=== PATIENT | male | born 1950 | race Caucasian/White ===

== ENCOUNTER 2016-06-27 13:51 | Inpatient (IN) | payer MEDICARE, MEDICAID ==
[2016-06-27] MEDS ORDERED: NORMAL SALINE 1000 ML 1,000 ML IV PRN ×2 (14:40→15:56)
--- NOTE | 2016-06-27 14:46 | ER Document Report ---
ED General - General Stated Complaint: ABDOMINAL PAIN Time seen by provider: 14:41 Mode of Arrival: Ambulatory Information source: Patient Notes: This is a 66-year-old man with a history of schizophrenia, diabetes, hypertension, coronary artery disease, COPD, hypertension that was last admitted in pneumonia for bilateral pneumonia. The patient is brought in because of abdomen pain, headache, nausea vomiting. Patient currently lives at home and has home health care. He also has a friend come over. He normally can walk around and in maneuver around his home and get to the bathroom. When EMS arrived on the scene, they noticed a blood pressure of 70/56 with a heart rate between 50 and 70. TRAVEL OUTSIDE OF THE [place] IN LAST 30 DAYS: No - HPI Onset: Just prior to arrival Onset/Duration: Gradual Quality of pain: Dull Severity: Moderate Pain Level: 4 Associated symptoms: Headache, Nausea. denies: Chills, Fever Exacerbated by: Denies Relieved by: Denies Similar symptoms previously: No Recently seen / treated by doctor: Yes - Related Data Allergies/Adverse Reactions: Penicillins Allergy (Verified 04/16/16 17:15) Sulfa (Sulfonamide Antibiotics) Allergy (Verified 04/16/16 17:15) Past Medical History - General Information source: Patient - Social History Smoking Status: Unknown if Ever Smoked Cigarette use (# per day): No Chew tobacco use (# tins/day): No Smoking Education Provided: No Frequency of alcohol use: None Drug Abuse: None Lives with: Other Family History: Reviewed & Not Pertinent Patient has suicidal ideation: No Patient has homicidal ideation: No - Past Medical History Cardiac Medical History: Reports: Hx Congestive Heart Failure, Hx Heart Attack, Hx Hypercholesterolemia, Hx Hypertension Pulmonary Medical History: Reports: Hx COPD Neurological Medical History: Endocrine Medical History: Reports: Hx Diabetes Mellitus Type 2 Renal/ Medical History: GI Medical History: Reports: Hx Gastroesophageal Reflux Disease Musculoskeltal Medical History: Reports Hx Arthritis, Reports Hx Multiple Sclerosis Psychiatric Medical History: Reports: Hx Depression, Hx Schizophrenia Past Surgical History: Reports: Hx Abdominal Surgery - HERNIA, Hx Cardiac Catheterization, Hx Cardiac Surgery - CABG (5 way); stents x 2 - Immunizations Hx Diphtheria, Pertussis, Tetanus Vaccination: Yes - UTD Review of Systems - Review of Systems Constitutional: denies: Chills, Fever EENT: No symptoms reported Cardiovascular: See HPI Respiratory: No symptoms reported Gastrointestinal: See HPI Genitourinary: No symptoms reported Male Genitourinary: No symptoms reported Musculoskeletal: No symptoms reported Skin: No symptoms reported Hematologic/Lymphatic: No symptoms reported Neurological/Psychological: See HPI, Weakness Physical Exam - Vital signs Vitals: Resp BP Pulse Ox 23 H 77/53 L 97 06/27/16 14:10 06/27/16 14:10 06/27/16 14:10 Notes: Physical exam: GENERAL: 66-year-old man, alert and answering questions. His eyes are closed and he does have a pale complexion. HEAD: Atraumatic, normocephalic. EYES: Pupils equal round and reactive to light, extraocular movements intact, sclera anicteric, conjunctiva are normal. ENT: TMs normal, nares patent, oropharynx clear without exudates. Moist mucous membranes. NECK: Normal range of motion, supple without lymphadenopathy or JVD. LUNGS: Breath sounds clear to auscultation bilaterally and equal. No wheezes rales or rhonchi. HEART: Regular rate and rhythm without murmurs, rubs or gallops. ABDOMEN: Soft, non-localizable tenderness without rebound and guarding, normoactive bowel sounds. No masses appreciated. Groin: Patient does have extensive eliseo in the groin. He does have a reducible scrotal hernia that is not tender to palpation. Penis and testicles: Left scrotal hernia noted above. The testicles are nontender. No obvious infection of the shaft. The whole perineum is excoriated from a superimposed yeast infection. Rectal: Patient does have a large amount of stool in his oral. He was disimpacted. Stool was sent for study. He does have grade 1 sacral breakdown. EXTREMITIES: Moving all extremities, no obvious edema. NEUROLOGICAL: Cranial nerves II through XII grossly intact. Normal speech, moving all extremities. PSYCH: Appears weak SKIN: As noted above Course - Re-evaluation Re-evalutation: 06/27/16 14:45 In the ER: IV fluids, manual fecal disimpaction, head CT Abdominal CT 06/27/16 18:29 Note: Patient has had 2-1/2 L of normal saline and his blood pressure has improved. A Pratt catheter was placed and he is making urine at this time. He seems more responsive at this time and does state his got some abdominal discomfort. His headache seems to improved. The patient has been given IV cefepime and IV levofloxacin. Blood and urine cultures have been sent. We'll continue to hydrate. 06/27/16 18:[address] Balbuena of surgery who will consult on the patient. I discussed case with Dr. Duarte who will be admitting the patient to the [facility]. 06/27/16 18:46 Note: Patient is noted to have some blood in the stool. Initial stool sample showed no blood. It is possible that this could be the result of the disimpaction earlier, it is unclear. In any event, patient will still be evaluated by surgery and will continue fluid resuscitation and antibiotics. Patient was seen by Dr. Balbuena in the emergency room. I discussed case with him further. The patient's abdominal exam reveals soft abdomen without peritoneal findings. However the lactic acid is quite concerning. We will continue to give IV fluids and IV antibiotics. The patient is admitted to the [facility]. 06/28/16 01:38 - Vital Signs Vital signs: Temp Pulse Resp BP Pulse Ox 96.7 F L 22 H 105/87 H 94 06/27/16 14:51 06/27/16 23:30 06/27/16 23:21 06/27/16 23:30 - Laboratory Result Diagrams: 06/27/16 21:50 06/27/16 21:50 Laboratory results interpreted by me: 06/27/16 06/27/16 06/27/16 15:10 15:10 17:55 WBC 17.1 H Plt Count 148 L Seg Neutrophils % 86.5 H Lymphocytes % 7.9 L Absolute Neutrophils 14.8 H Sodium 130.0 L Potassium 3.3 L Chloride 90 L Glucose 138 H Lactic Acid 7.1 H - Diagnostic Test Radiology reviewed: Image reviewed, Reports reviewed - EKG Interpretation by Me Rate: Normal Rhythm: Arrthymia - EKG shows a sinus arrhythmia with a ventricular rate of 68, right bundle branch block, old inferior wall GA. No significant change compared to an EKG performed 04/16/2016 Critical Care Note - Critical Care Note Total time excluding time spent on procedures (mins): 90 Discharge - Discharge Clinical Impression: abdominal pain, hypotension, hypokalemia Condition: Serious Disposition: ADMITTED INPATIENT Admitting Provider: Gerald
[2016-06-27 15:35] LABS: ABSOLUTE BASOPHILS # (AUTO) 0.1 10^3/uL (0.0-0.2); ABSOLUTE EOSINOPHILS # (AUTO) 0.1 10^3/uL (0.0-0.6); ABSOLUTE LYMPHOCYTES (AUTO) 1.3 10^3/uL (0.5-4.7); ABSOLUTE MONOCYTES (AUTO) 0.8 10^3/uL (0.1-1.4); ABSOLUTE NEUT (AUTO) 14.8 10^3/uL (1.7-8.2); BASOPHILS % (AUTO) 0.7 % (0-2); EOSINOPHILS % (AUTO) 0.4 % (0-6); HEMATOCRIT 44.9 % (37.9-51.0); HEMOGLOBIN 14.8 g/dL (13.5-17.0); HGB HCT DIFFERENCE -0.5; LYMPHOCYTES % (AUTO) 7.9 % (13-45); MEAN CORPUSCULAR HEMOGLOBIN 31.4 pg (27.0-33.4); MEAN CORPUSCULAR HGB CONC 33.1 g/dL (32.0-36.0); MEAN CORPUSCULAR VOLUME 95 fl (80-97); MONOCYTES % (AUTO) 4.5 % (3-13); RED BLOOD COUNT 4.73 10^6/uL (4.35-5.55); RED CELL DISTRIBUTION WIDTH 13.7 % (11.5-14.0); SEGMENTED NEUTROPHILS % (AUTO) 86.5 % (42-78); WHITE BLOOD COUNT 17.1 10^3/uL (4.0-10.5)
[2016-06-27 15:47] LABS: ALANINE AMINOTRANSFERASE 26 U/L (21-72); ALBUMIN 3.7 g/dL (3.5-5.0); ALKALINE PHOSPHATASE 62 U/L (38-126); ANION GAP 16 (5-19); ASPARTATE AMINO TRANSFERASE 25 U/L (17-59); BILIRUBIN,TOTAL 0.9 mg/dL (0.2-1.3); BLOOD UREA NITROGEN 19 mg/dL (7-20); CALCIUM 9.6 mg/dL (8.4-10.2); CARBON DIOXIDE 24 mmol/L (22-30); CHLORIDE 90 mmol/L (98-107); CREATINE KINASE 61 U/L (55-170); CREATININE RESULT 1.13 mg/dL (0.52-1.25); GLUCOSE 138 mg/dL (75-110); LIPASE 116.9 U/L (23-300); POTASSIUM 3.3 mmol/L (3.6-5.0); TOTAL PROTEIN 6.5 g/dL (6.3-8.2)
[2016-06-27 15:59] LABS: CREATINE KINASE MB 1.87 ng/mL (<4.55)
[2016-06-27 16:00] LABS: TROPONIN I < 0.012 ng/mL
[2016-06-27] MEDS ORDERED: LEVOFLOXACIN 750 MG/D5W RTU 150 ML IV ONE (16:04)
[2016-06-27] MEDS ORDERED: CEFEPIME 1 GM/D5W RTU 50 ML IV ONE (16:04)
[2016-06-27 16:11] LABS: APPEARANCE,URINE CLEAR; BILIRUBIN,URINE NEGATIVE (NEGATIVE); GLUCOSE, URINE NEGATIVE (NEGATIVE); KETONES,URINE NEGATIVE (NEGATIVE); LEUKOCYTE ESTERASE,URINE NEGATIVE (NEGATIVE); NITRITE,URINE NEGATIVE (NEGATIVE); PROTEIN,URINE NEGATIVE (NEGATIVE); URINE SPECIFIC GRAVITY 1.008; UROBILINOGEN,URINE NEGATIVE mg/dL (<2.0)
--- NOTE | 2016-06-27 18:29 | EKG REPORT ---
SEVERITY:- ABNORMAL ECG - SINUS RHYTHM ATRIAL PREMATURE COMPLEX RBBB AND LPFB OLD INFERIOR VA : Confirmed by: Noe Rodrigez MD 27-Jun-2016 18:28:16
[2016-06-27] MEDS ORDERED: POTASSI CL 20 MEQ/50 ML RIDER 50 ML IV SCH (18:45)
[2016-06-27] MEDS ORDERED: NORMAL SALINE 1000 ML 1,000 ML IV ONE (20:00)
[2016-06-27] MEDS ORDERED: VANCOMYCIN HCL 750 MG in DEXTROSE 5%-WATER 250 ML IV ONE (20:30)
[2016-06-27 22:01] LABS: HEMATOCRIT 46.6 % (37.9-51.0); HEMOGLOBIN 15.4 g/dL (13.5-17.0); HGB HCT DIFFERENCE -0.4; MEAN CORPUSCULAR HEMOGLOBIN 31.8 pg (27.0-33.4); MEAN CORPUSCULAR HGB CONC 33.1 g/dL (32.0-36.0); MEAN CORPUSCULAR VOLUME 96 fl (80-97); RED BLOOD COUNT 4.85 10^6/uL (4.35-5.55); RED CELL DISTRIBUTION WIDTH 13.9 % (11.5-14.0); WHITE BLOOD COUNT 8.8 10^3/uL (4.0-10.5)
[2016-06-27 22:08] LABS: PROTHROMBIN TIME 22.9 SEC (11.4-15.4)
[2016-06-27 22:09] LABS: PARTIAL THROMBOPLASTIN TIME 41.1 SEC (23.5-35.8)
--- NOTE | 2016-06-27 22:12 | PDOC H&P ---
History of Present Illness Admission Date/PCP: 06/27/16 19:18 MARYANN ASHLEY Patient complains of: Abdominal pain History of Present Illness: VIRY ROD is a 66 year old male brought to the ED because of for complaints of abdomen pain, nausea and vomiting. Patient caregiver reported that he was not his usual self for couple of days but became more sicker less engaging his his self care. In view of these his caregiver activate EMS. EMS personnel reported significant hypotension with recorded readings of 70/50mmHg with associated bradycardia and heart rate in range of 50 to 70 per minute. His initial ED evaluation was significant for hypotension, tachypnea, leukocytosis with left shift and lactic acidosis. Patient was initially managed with IV fluid resuscitation and antibiotic therapy after appropriate workup. At the time of my he was verbally responsive but hypotension persist. Patient was able to contribute to his medical history at the time of my evaluation. He has history of hypertension, CAD, DM type 2, COPD, and Schizophrenia. Patient was advised hospitalization to ICU due to his hemodynamic instability. Past Medical History Cardiac Medical History: Reports: Congestive Heart Failure, Coronary Artery Disease, Myocardial Infarction, Hyperlipidema, Hypertension Pulmonary Medical History: Reports: Chronic Obstructive Pulmonary Disease (COPD) Neurological Medical History: Endocrine Medical History: Reports: Diabetes Mellitus Type 2 Renal/ Medical History: GI Medical History: Reports: Gastroesophageal Reflux Disease Musculoskeltal Medical History: Reports: Arthritis Psychiatric Medical History: Reports: Depression Hematology: Denies: Anemia, Bleeding Tendencies Past Surgical History Past Surgical History: Reports: Cardiac Catheterization Social History Smoking Status: Current Every Day Smoker Frequency of Alcohol Use: Occasional Hx Recreational Drug Use: No Drugs: None Hx Prescription Drug Abuse: No Family History Family History: Reviewed & Not Pertinent Parental Family History Reviewed: Yes Children Family History Reviewed: Yes Sibling(s) Family History Reviewed.: Yes Medication/Allergy Home Medications: Benztropine Mesylate [Benztropine Mesylate 2 mg Tablet] 2 mg PO QHS 02/10/15 Duloxetine HCl [Cymbalta] 60 mg PO BID 08/10/15 Paliperidone Palmitate [Invega Trinza] 156 mg IM [id number] 08/10/15 Acetaminophen [Tylenol 325 mg Tablet] 650 mg PO Q4HP PRN #60 tablet 08/15/15 Allopurinol [Zyloprim 100 mg Tablet] 100 mg PO DAILY #30 tablet 08/15/15 Amlodipine Besylate 10 mg PO DAILY #30 tab 08/15/15 Clonidine HCl [Catapres 0.2 mg Tablet] 0.2 mg PO Q12 #60 tablet 08/15/15 Ezetimibe/Simvastatin [Vytorin 10-20 mg Tablet] 1 each PO DAILY #30 tablet 08/14 Furosemide [Lasix 40 mg Tablet] 40 mg PO QAM #30 tablet 08/15/15 Hydralazine HCl [Apresoline 50 mg Tablet] 100 mg PO Q8 #180 tablet 08/15/15 Metformin HCl [Glucophage 500 mg Tablet] 1,000 mg PO BID #60 tablet 08/15/15 Nicotine [Nicoderm 21 mg/24 Hr Transderm Patch] 1 each TD DAILY #30 patch.td24 08/15/15 Lisinopril 20 mg PO DAILY 04/16/16 Hydrocortisone [Hydrocortisone 1% Cream 28.35 gm] 1 applic TP DAILY #0 tube Magnesium Oxide [Mag-Ox 400 mg Tablet] 400 mg PO DAILY #0 tablet 04/27/16 Trazodone HCl [Desyrel 50 mg Tablet] 25 mg PO QHS #0 tablet 04/27/16 Allergies/Adverse Reactions: Penicillins Allergy (Verified 04/16/16 17:15) Sulfa (Sulfonamide Antibiotics) Allergy (Verified 04/16/16 17:15) Review of Systems Constitutional: PRESENT: anorexia, fatigue, weakness. ABSENT: as per HPI, chills, fever(s), headache(s), night sweats, weight gain, weight loss, other Eyes: PRESENT: visual disturbances Ears: PRESENT: hearing changes Nose, Mouth, and Throat: ABSENT: as per HPI, headache(s), mouth pain, sore throat, vertigo, other Cardiovascular: ABSENT: chest pain, dyspnea on exertion, edema, orthropnea, palpitations Respiratory: ABSENT: cough, hemoptysis Gastrointestinal: PRESENT: abdominal pain, nausea, vomiting. ABSENT: as per HPI , bloating, coffee ground emesis, constipation, diarrhea, dysphagia, heartburn, hematemesis, hematochezia, melena, other Genitourinary: ABSENT: as per HPI, difficulty urinating, dysuria, hematuria, nocturia, other Musculoskeletal: PRESENT: joint swelling - chronic left leg Neurological: PRESENT: abnormal gait, confusion - as per caregiver report, lack of coordination, memory loss, weakness. ABSENT: as per HPI, abnormal movements , abnormal speech, convulsions, dizziness, focal weakness, frequent falls, numbness, paresthesias, restless legs, syncope, tingling, tremor(s), vertigo, other Psychiatric: ABSENT: anxiety, depression, homidical ideation, suicidal ideation Endocrine: ABSENT: cold intolerance, heat intolerance, menstrual abnormalities, polydipsia, polyuria Hematologic/Lymphatic: ABSENT: easy bleeding, easy bruising, lymphadenopathy Physical Exam Vital Signs: Temp Pulse Resp BP Pulse Ox 96.7 F L 26 H 100/82 99 06/27/16 14:51 06/27/16 21:01 06/27/16 20:31 06/27/16 21:01 Results Laboratory Results: see [facility] [employer] for details. I reviewed available test results and they contribute to my final decision making on this case. 06/27/16 19:20 Troponin I 0.023 Impressions: Chest X-Ray 06/27/16 14:21 IMPRESSION: No acute findings. Head CT 06/27/16 14:40 IMPRESSION: MILD CHRONIC CHANGES OF ATROPHY AND MICROVASCULAR ISCHEMIA. NO ACUTE PROCESS. Abdomen/Pelvis CT 06/27/16 15:53 IMPRESSION: 9 cm left inguinal hernia which contains a segment of sigmoid colon. There is mild stranding in the retroperitoneal fat, no definite evidence of incarceration. There is moderate impaction of stool in the rectosigmoid colon. The the remainder of the colon proximal to the hernia sac is largely fluid filled. No dilated small bowel. Fluid-filled esophagus, correlate for history of achalasia. Assessment & Plan - Diagnosis (1) SIRS due to infectious process with organ dysfunction Is this a current diagnosis for this admission?: YesPlan: See admitting physician orders for details. (2) Hyponatremia Is this a current diagnosis for this admission?: YesPlan: See admitting physician orders for details. (3) Weakness generalized Is this a current diagnosis for this admission?: YesPlan: See admitting physician orders for details. (4) Schizophrenia Is this a current diagnosis for this admission?: YesPlan: Maintain on preadmission medication management. - Time Time Spent: Greater than 70 Minutes Medications reviewed and adjusted accordingly: Yes Anticipated discharge: Other Within: Other - Inpatient Certification Medical Necessity: Need Close Monitoring Due to Risk of Patient Decompensation, Need For IV Fluids, Need For Continuous Telemetry Monitoring, Need for IV Antibiotics, Risk of Complication if Not Cared For in Hospital Post Hospital Care: D/C [employer] Documentation - Plan Summary Plan Summary: See admitting physician orders for details.
[2016-06-27 22:19] LABS: CREATININE RESULT 1.16 mg/dL (0.52-1.25)
[2016-06-27] MEDS: DOPAMINE HCL/DEXTROSE 5%-WATER 250 ML IV PRN (22:25)
[2016-06-28] MEDS ORDERED: RINGERS SOLUTION,LACTATED 1,000 ML IV ONE ×2 (01:48→01:49)
[2016-06-28] MEDS ORDERED: VANCOMYCIN HCL INJ 1000 MG VIAL ONE (02:06)
[2016-06-28] MEDS: NORMAL SALINE 1000 ML 1,000 ML IV PRN ×5 (02:35→14:25)
[2016-06-28] MEDS ORDERED: NOREPINEPHRINE BITARTRATE INJ/PF 4 MG/4 ML SDV IV ONE (04:10)
[2016-06-28 04:36] LABS: ARTERIAL BLOOD BASE EXCESS -15.6 mmol/L; ARTERIAL BLOOD O2 SATURATION 89.1 % (94-98)
[2016-06-28] MEDS ORDERED: POTASSI CL 20 MEQ/50 ML RIDER 40 MEQ/100 ML RTUPB IV ONE (05:14)
[2016-06-28] MEDS ORDERED: LANSOPRAZOLE 30 MG TAB.RAP.DR PO SCH (06:00)
[2016-06-28] MEDS: DOPAMINE HCL/DEXTROSE 5%-WATER 250 ML IV PRN ×2 (06:19→20:05)
[2016-06-28 07:00] LABS: HEMATOCRIT 44.1 % (37.9-51.0); HEMOGLOBIN 14.2 g/dL (13.5-17.0); HGB HCT DIFFERENCE -1.5; MEAN CORPUSCULAR HEMOGLOBIN 31.3 pg (27.0-33.4); MEAN CORPUSCULAR HGB CONC 32.1 g/dL (32.0-36.0); MEAN CORPUSCULAR VOLUME 98 fl (80-97); RED BLOOD COUNT 4.52 10^6/uL (4.35-5.55); WHITE BLOOD COUNT 8.2 10^3/uL (4.0-10.5)
[2016-06-28] MEDS ORDERED: NORMAL SALINE 1000 ML 1,000 ML IV ONE ×2 (07:00→09:00)
[2016-06-28 07:39] LABS: ALANINE AMINOTRANSFERASE 35 U/L (21-72); ALBUMIN 3.1 g/dL (3.5-5.0); ALKALINE PHOSPHATASE 53 U/L (38-126); ASPARTATE AMINO TRANSFERASE 54 U/L (17-59); BILIRUBIN,DIRECT 0.2 mg/dL (0.0-0.3); BILIRUBIN,TOTAL 1.3 mg/dL (0.2-1.3); BLOOD UREA NITROGEN 28 mg/dL (7-20); CALCIUM 9.1 mg/dL (8.4-10.2); CREATININE RESULT 1.43 mg/dL (0.52-1.25); GLUCOSE 77 mg/dL (75-110); TOTAL PROTEIN 5.3 g/dL (6.3-8.2)
[2016-06-28 07:49] LABS: CHLORIDE 99 mmol/L (98-107); SODIUM 134.2 mmol/L (137-145)
[2016-06-28 07:53] LABS: ANION GAP 23 (5-19); CARBON DIOXIDE 12 mmol/L (22-30); POTASSIUM 4.6 mmol/L (3.6-5.0)
[2016-06-28 08:09] LABS: BAND NEUTROPHILS % (MANUAL) 27 % (3-5); BASOPHILS % (MANUAL) 0 % (0-2); EOSINOPHILS % (MANUAL) 0 % (0-6); LYMPHOCYTES % (MANUAL) 4 % (13-45); TOTAL CELLS COUNTED 100
[2016-06-28 08:11] LABS: TOXIC VACUOLATION PRESENT
[2016-06-28 08:12] LABS: POLYCHROMASIA SLIGHT
[2016-06-28] MEDS ORDERED: VANCOMYCIN HCL 0 MG in DEXTROSE 5%-WATER 250 ML IV NR (08:30)
[2016-06-28] MEDS ORDERED: ROCURONIUM BROMIDE INJ 50 MG/5 ML VIAL IV ONE (08:57)
[2016-06-28] MEDS: LEVOFLOXACIN 750 MG/D5W RTU 150 ML IV SCH (09:12)
[2016-06-28] MEDS: CEFEPIME 1 GM/D5W RTU 50 ML IV SCH ×2 (09:13→22:24)
[2016-06-28] MEDS: DEXTROSE 5%-WATER 250 ML with NOREPINEPHRINE BITARTRATE 4 MG IV PRN ×6 (09:58→14:26)
--- NOTE | 2016-06-28 09:59 | PDOC CONSULTATION ---
History of Present Illness Admission Date/PCP: 06/27/16 19:18 MARYANN GABI History of Present Illness: Mr. Fink is 66-year-old white male with schizophrenia, current heavy smoker, diabetes, coronary artery disease status post CABG, COPD, CHF, hyper lipidemia, hypertension and occasional bouts of hypotension. The patient is confused and difficult to understand. The history is gleaned from his COMMERCIAL UNDERWRITER who accompanies him, the patient himself, and the patient's brother Justyn via phone. Apparently the patient can ambulate around his home and get to the bathroom, however he does wear a diaper due to urinary and possibly fecal incontinence. The nurse's aide reports that he does all his own showering and changing of dirty diapers. She reports that she does not visualize his groin, genitals, nor perineum, and therefore was not aware of a severe bilateral groin fungal infection. This was discovered by the ED nurses and EMS. They also report a left groin hernia. The patient verifies a left groin hernia of many years duration. By report from the patient and his brother, the patient has not historically been felt to be a surgical candidate for hernia repair as well as other surgeries including cataract surgery based on his poor health. The patient has occasional discomfort from his hernia but no disruption in his bowel habits. Per the brother the patient's usual stool pattern are periods of constipation which resolve with large volume stool and diarrhea. Today the nurse reports the patient spoke of more abdominal discomfort then normal. The patient indicates the abdominal discomfort is in the groin and lower abdomen. He reports it is mild in severity. His home COMMERCIAL UNDERWRITER reports it was moderate in severity earlier today, disrupting the patient's normal afternoon nap. The patient and the COMMERCIAL UNDERWRITER denying nausea, vomiting, fevers, chills, sweats, tremors, bloody stools. They reported general fatigue. The patient was disimpacted by the ED provider. I then saw the patient incontinent of loose stool approximately an hour later which was brown and relatively unremarkable. It was neither bloody, mucousy nor malodorous. Later in the night district service manager in the ICU, I repeated the rectal exam which failed to show any masses, but did produce more copious brown loose stools. With regard to the patient's hypotension, his brother reports that the patient has had multiple episodes of hypotension previously. He reports that aggressive attempts to to correct the hypotension are made in the hospital during previous admissions, but have recurred multiple times without explanation. The brother questions whether the occasional episodes of hypotension, confusion and various aches and pains are related to the patient's schedule of schizophrenia medication. He gets an injection of Invega Sustenna approximately every 2 weeks, and is due for the injection tomorrow, on 2016. The patient later in the ICU also reports a fall 2 weeks ago and pain "all over. " Asked to specify he reports pain in his neck, upper and lower back, arms, legs. The patient's brother reports the patient has had multiple falls recently. Past Medical History Cardiac Medical History: Reports: Congestive Heart Failure, Coronary Artery Disease, Myocardial Infarction, Hyperlipidema, Hypertension Pulmonary Medical History: Reports: Chronic Obstructive Pulmonary Disease (COPD) Neurological Medical History: Endocrine Medical History: Reports: Diabetes Mellitus Type 2 Renal/ Medical History: GI Medical History: Reports: Gastroesophageal Reflux Disease Musculoskeltal Medical History: Reports: Arthritis Psychiatric Medical History: Reports: Depression, Schizoaffective Disorder - Schizophrenia, Other - Schizophrenia Past Surgical History Past Surgical History: Reports: Cardiac Catheterization, Coronary Artery Bypass Graft, Herniorrhaphy - The brother leaves the patient had herniorrhaphy several decades ago. Social History Information Source: Relative Lives with: Alone Smoking Status: Current Every Day Smoker Cigarettes Packs Per Day: 1 Frequency of Alcohol Use: Rare Hx Recreational Drug Use: No Drugs: None Hx Prescription Drug Abuse: No Family History Family History: Reviewed & Not Pertinent Parental Family History Reviewed: Yes Children Family History Reviewed: Yes Sibling(s) Family History Reviewed.: Yes Medication/Allergy Home Medications: Benztropine Mesylate [Benztropine Mesylate 2 mg Tablet] 2 mg PO QHS 02/10/15 Duloxetine HCl [Cymbalta] 60 mg PO BID 08/10/15 Paliperidone Palmitate [Invega Trinza] 156 mg IM [id number] 08/10/15 Acetaminophen [Tylenol 325 mg Tablet] 650 mg PO Q4HP PRN #60 tablet 08/15/15 Allopurinol [Zyloprim 100 mg Tablet] 100 mg PO DAILY #30 tablet 08/15/15 Amlodipine Besylate 10 mg PO DAILY #30 tab 08/15/15 Clonidine HCl [Catapres 0.2 mg Tablet] 0.2 mg PO Q12 #60 tablet 08/15/15 Ezetimibe/Simvastatin [Vytorin 10-20 mg Tablet] 1 each PO DAILY #30 tablet 08/14 Furosemide [Lasix 40 mg Tablet] 40 mg PO QAM #30 tablet 08/15/15 Hydralazine HCl [Apresoline 50 mg Tablet] 100 mg PO Q8 #180 tablet 08/15/15 Metformin HCl [Glucophage 500 mg Tablet] 1,000 mg PO BID #60 tablet 08/15/15 Nicotine [Nicoderm 21 mg/24 Hr Transderm Patch] 1 each TD DAILY #30 patch.td24 08/15/15 Lisinopril 20 mg PO DAILY 04/16/16 Hydrocortisone [Hydrocortisone 1% Cream 28.35 gm] 1 applic TP DAILY #0 tube Magnesium Oxide [Mag-Ox 400 mg Tablet] 400 mg PO DAILY #0 tablet 04/27/16 Trazodone HCl [Desyrel 50 mg Tablet] 25 mg PO QHS #0 tablet 04/27/16 Allergies/Adverse Reactions: Penicillins Allergy (Verified 04/16/16 17:15) Sulfa (Sulfonamide Antibiotics) Allergy (Verified 04/16/16 17:15) Review of Systems All systems: reviewed and no additional remarkable complaints except as stated Physical Exam Vital Signs: Temp Pulse Resp BP Pulse Ox 99.1 F 98 35 H 94/67 L 100 06/28/16 08:00 06/28/16 08:00 06/28/16 08:05 06/28/16 08:05 06/28/16 08:05 Intake & Output 06/27/16 06/28/16 06/29/16 06:59 06:59 06:59 Output Total 300 50 Balance -300 -50 Weight 103 kg General appearance: PRESENT: no acute distress, disheveled Head exam: PRESENT: normocephalic Eye exam: PRESENT: EOMI Mouth exam: PRESENT: neck supple Teeth exam: PRESENT: poor dentation - Poor dentition but no oral sores or abscesses. Small patch of erythematous/petechiae on posterior oropharynx. Neck exam: ABSENT: lymphadenopathy, tenderness, thyromegaly Respiratory exam: PRESENT: clear to auscultation debi, tachypnea - Tachypnea later in the evening well in the ICU Cardiovascular exam: PRESENT: RRR GI/Abdominal exam: PRESENT: hypoactive bowel sounds, soft, tenderness - Minor tenderness to palpation in the lower abdomen. The hernia in the left groin is large and easily reducible with minimal discomfort. When checked 2 hours later and the hernia has recurred but slightly less large.. ABSENT: distended, guarding, rebound Rectal exam: PRESENT: normal rectal tone, other - Rectal exam yields a large amount of brown soft/diarrheal stool. It is not malodorous, not mucousy, not bloody. Higher in the rectal vault soft stool can be felt.. ABSENT: black stool, bloody stool, mass Gentrourinary exam: PRESENT: other - Seems to have mild phimosis. Pratt catheter initially yields yellow urine and later darker and keren urine. Extremities exam: PRESENT: other - Significant changes of diabetes and peripheral arterial disease evident such as nail changes, dry skin, no hair growth, Charcot joints. Neurological exam: PRESENT: awake, oriented to person - Moments of lucidity but also confusion., other - No tremors in the ED. Later, when cold in the ICU, had some shakes. Focused psych exam: PRESENT: other Skin exam: PRESENT: other - Severe bilateral inguinal/perineal fungal infection with exudate.. ABSENT: jaundice Results Laboratory Results: 06/28/16 06:45 06/28/16 06:45 06/27/16 06/27/16 06/27/16 21:50 21:50 21:50 WBC 8.8 RBC 4.85 Hgb 15.4 Hct 46.6 MCV 96 MCH 31.8 MCHC 33.1 RDW 13.9 Plt Count 116 L Seg Neutrophils % Lymphocytes % Monocytes % Eosinophils % Basophils % Absolute Neutrophils Absolute Lymphocytes Absolute Monocytes Absolute Eosinophils Absolute Basophils Carbonic Acid HCO3/H2CO3 Ratio ABG pH ABG pCO2 ABG pO2 ABG HCO3 ABG O2 Saturation ABG Base Excess FiO2 Sodium Potassium Chloride Carbon Dioxide Anion Gap BUN Creatinine 1.16 Est GFR ( Amer) > 60 Est GFR (Non-Af Amer) > 60 Glucose Lactic Acid 8.9 H Calcium Total Bilirubin AST ALT Alkaline Phosphatase Total Protein Albumin 06/28/16 06/28/16 06/28/16 04:25 06:45 06:45 WBC 8.2 RBC 4.52 Hgb 14.2 Hct 44.1 MCV 98 H MCH 31.3 MCHC 32.1 RDW 14.0 Plt Count 106 L Seg Neutrophils % Not Reportable Lymphocytes % Not Reportable Monocytes % Not Reportable Eosinophils % Not Reportable Basophils % Not Reportable Absolute Neutrophils Not Reportable Absolute Lymphocytes Not Reportable Absolute Monocytes Not Reportable Absolute Eosinophils Not Reportable Absolute Basophils Not Reportable Carbonic Acid 0.78 L HCO3/H2CO3 Ratio 13:1 ABG pH 7.22 L ABG pCO2 26.0 L ABG pO2 65.0 L ABG HCO3 10.4 L ABG O2 Saturation 89.1 L ABG Base Excess -15.6 FiO2 ROOM AIR Sodium 134.2 L Potassium 4.6 D Chloride 99 Carbon Dioxide 12 L D Anion Gap 23 H BUN 28 H Creatinine 1.43 H Est GFR ( Amer) > 60 Est GFR (Non-Af Amer) 49 L Glucose 77 Lactic Acid Calcium 9.1 Total Bilirubin 1.3 AST 54 ALT 35 Alkaline Phosphatase 53 Total Protein 5.3 L Albumin 3.1 L 06/28/16 06:45 WBC RBC Hgb Hct MCV MCH MCHC RDW Plt Count Seg Neutrophils % Lymphocytes % Monocytes % Eosinophils % Basophils % Absolute Neutrophils Absolute Lymphocytes Absolute Monocytes Absolute Eosinophils Absolute Basophils Carbonic Acid HCO3/H2CO3 Ratio ABG pH ABG pCO2 ABG pO2 ABG HCO3 ABG O2 Saturation ABG Base Excess FiO2 Sodium Potassium Chloride Carbon Dioxide Anion Gap BUN Creatinine Est GFR ( Amer) Est GFR (Non-Af Amer) Glucose Lactic Acid 10.0 H Calcium Total Bilirubin AST ALT Alkaline Phosphatase Total Protein Albumin 06/27/16 19:20 Troponin I 0.023 Impressions: Chest X-Ray 06/27/16 14:21 IMPRESSION: No acute findings. Head CT 06/27/16 14:40 IMPRESSION: MILD CHRONIC CHANGES OF ATROPHY AND MICROVASCULAR ISCHEMIA. NO ACUTE PROCESS. Abdomen/Pelvis CT 06/27/16 15:53 IMPRESSION: 9 cm left inguinal hernia which contains a segment of sigmoid colon. There is mild stranding in the retroperitoneal fat, no definite evidence of incarceration. There is moderate impaction of stool in the rectosigmoid colon. The the remainder of the colon proximal to the hernia sac is largely fluid filled. No dilated small bowel. Fluid-filled esophagus, correlate for history of achalasia. Assessment & Plan - Diagnosis (1) Hypotension Is this a current diagnosis for this admission?: YesPlan: I spoke with the ER provider multiple times about the patient throughout the night, reevaluated the patient in the ED and in the unit after initial consultation, spoke with another general surgeon and spoke with the patient's brother over phone. Refractory hypotension. On pressors. Receiving fluid boluses. Worsening lactic acidosis. No clear etiology. Abdominal exam is not impressive. Hernia is easily reducible and is chronic. Stool was brown diarrhea after disimpaction, but otherwise unremarkable. Spoke with his brother extensively. Brother reports multiple bouts of hypotension without clear etiology. Discussed a central line, which the brother wants to forego in the early a.m. but will reconsider. The brother and a sister are the thomas of workers compensation attorney. Discussed exploratory laparotomy but difficult to justify given the relatively benign abdominal exam. He does have abdominal discomfort but is minor to deep palpation. At times he is not even demonstrating any abdominal tenderness if he is distracted while the exam is performed. Surgical risk is high, and the risk-benefit ratio of proceeding to surgery for negative exploratory laparoscopy versus foregoing exploratory laparoscopy in the face of possible ischemic bowel his weight and discussed with the patient and his brother. At this point the brother wants to forego any procedures. The patient remains full code after discussion with the brother who is power of workers compensation attorney. I explained the gravity of the situation to the brother and he understands. (2) Encephalopathy acute Is this a current diagnosis for this admission?: Yes (3) SIRS due to infectious process with organ dysfunction Is this a current diagnosis for this admission?: Yes (4) Altered mental status Qualifiers: Altered mental status type: unspecified Qualified Code(s): R41.82 - Altered mental status, unspecified Is this a current diagnosis for this admission?: Yes (5) Chronic obstructive pulmonary disease Qualifiers: COPD type: unspecified COPD Qualified Code(s): J44.9 - Chronic obstructive pulmonary disease, unspecified (6) Chronic systolic heart failure Is this a current diagnosis for this admission?: Yes (7) Diabetes mellitus type II, controlled Is this a current diagnosis for this admission?: Yes (9) Schizophrenia Is this a current diagnosis for this admission?: Yes
[2016-06-28] MEDS ORDERED: IPRATROPIUM/ALBUTEROL 0.5-2.5 MG/3 ML AMPUL NEB PRN (10:09)
[2016-06-28] MEDS ORDERED: PROPOFOL 100 ML IV ONE (10:10)
[2016-06-28] MEDS ORDERED: PHARMACY COMMUNICATION ORDER MC NR (10:15)
[2016-06-28] MEDS ORDERED: PHENYLEPHRINE HCL INJ/PF 10 MG/1 ML SDV ONE (10:24)
[2016-06-28] MEDS ORDERED: NORMAL SALINE 1000 ML 1,000 ML IV SCH (10:45)
[2016-06-28 10:53] LABS: PATH REVIEW PATHOLOGIST REVIEWED
--- NOTE | 2016-06-28 11:15 | PDOC PROGRESS REPORT ---
Subjective Progress Note for:: 06/28/16 Subjective:: Mr. Fink continued to do poorly throughout the morning. Continued hypotension, tachypnea. Dr. Esquivel was consulted for impending respiratory failure and critical care. The patient was intubated successfully by anesthesia. The esophagus was suctioned and an NG tube was placed, both of which yielded possibly 1.5 L of dark brown, possibly sanguinous gastric contents. Not clearly coffee grounds, more liquid but still suspicious for blood. Another bowel movement this morning, again nonbloody/non-mucousy/non-malodorous. After having spoke with Dr. Gibson but the situation last evening, I again asked his assistance in reevaluating the patient and situation. Again the abdominal exam yielded tenderness only to very deep palpation. No rebound. No guarding. If the patient does have a GI bleed, etc. unclear as to whether this is secondary to the hypotension/sepsis/stress or if there was a primary abdominal event. Dr. Duarte talked to the brother about a central line and the brother consented this time. Central line was placed. See operative note. Continued aggressive fluid resuscitation will be undertaken. If the patient becomes more stable, we will again consider exploratory laparotomy, as no other etiology has yet been identified. Physical Exam Vital Signs: Temp Pulse Resp BP Pulse Ox 99.1 F 102 H 20 116/90 H 92 06/28/16 08:00 06/28/16 10:53 06/28/16 10:53 06/28/16 10:00 06/28/16 10:53 Intake & Output 06/27/16 06/28/16 06/29/16 06:59 06:59 06:59 Output Total 300 200 Balance -300 -200 Weight 103 kg Respiratory exam: PRESENT: clear to auscultation debi, tachypnea - Tachycardia prior to intubation. Cardiovascular exam: PRESENT: tachycardia - On pressors GI/Abdominal exam: PRESENT: hernia - Easily reducible left inguinal hernia., soft, tenderness - Tender to deep palpation., other - NG tube placed.. ABSENT: distended, guarding, rebound, rigid Rectal exam: PRESENT: other - Continued brown non-mucousy/nonbloody/non- malodorous stools. Extremities exam: ABSENT: pedal edema, tenderness Neurological exam: PRESENT: awake, oriented to situation - Patient was fairly lucid this morning and providing generally appropriate answers prior intubation. Results Laboratory Results: 06/28/16 06:45 06/28/16 06:45 06/27/16 06/27/16 06/27/16 21:50 21:50 21:50 WBC 8.8 RBC 4.85 Hgb 15.4 Hct 46.6 MCV 96 MCH 31.8 MCHC 33.1 RDW 13.9 Plt Count 116 L Seg Neutrophils % Lymphocytes % Monocytes % Eosinophils % Basophils % Absolute Neutrophils Absolute Lymphocytes Absolute Monocytes Absolute Eosinophils Absolute Basophils Carbonic Acid HCO3/H2CO3 Ratio ABG pH ABG pCO2 ABG pO2 ABG HCO3 ABG O2 Saturation ABG Base Excess FiO2 Sodium Potassium Chloride Carbon Dioxide Anion Gap BUN Creatinine 1.16 Est GFR ( Amer) > 60 Est GFR (Non-Af Amer) > 60 Glucose Lactic Acid 8.9 H Calcium Total Bilirubin AST ALT Alkaline Phosphatase Total Protein Albumin 06/28/16 06/28/16 06/28/16 04:25 06:45 06:45 WBC 8.2 RBC 4.52 Hgb 14.2 Hct 44.1 MCV 98 H MCH 31.3 MCHC 32.1 RDW 14.0 Plt Count 106 L Seg Neutrophils % Not Reportable Lymphocytes % Not Reportable Monocytes % Not Reportable Eosinophils % Not Reportable Basophils % Not Reportable Absolute Neutrophils Not Reportable Absolute Lymphocytes Not Reportable Absolute Monocytes Not Reportable Absolute Eosinophils Not Reportable Absolute Basophils Not Reportable Carbonic Acid 0.78 L HCO3/H2CO3 Ratio 13:1 ABG pH 7.22 L ABG pCO2 26.0 L ABG pO2 65.0 L ABG HCO3 10.4 L ABG O2 Saturation 89.1 L ABG Base Excess -15.6 FiO2 ROOM AIR Sodium 134.2 L Potassium 4.6 D Chloride 99 Carbon Dioxide 12 L D Anion Gap 23 H BUN 28 H Creatinine 1.43 H Est GFR ( Amer) > 60 Est GFR (Non-Af Amer) 49 L Glucose 77 Lactic Acid Calcium 9.1 Total Bilirubin 1.3 AST 54 ALT 35 Alkaline Phosphatase 53 Total Protein 5.3 L Albumin 3.1 L 06/28/16 06:45 WBC RBC Hgb Hct MCV MCH MCHC RDW Plt Count Seg Neutrophils % Lymphocytes % Monocytes % Eosinophils % Basophils % Absolute Neutrophils Absolute Lymphocytes Absolute Monocytes Absolute Eosinophils Absolute Basophils Carbonic Acid HCO3/H2CO3 Ratio ABG pH ABG pCO2 ABG pO2 ABG HCO3 ABG O2 Saturation ABG Base Excess FiO2 Sodium Potassium Chloride Carbon Dioxide Anion Gap BUN Creatinine Est GFR ( Amer) Est GFR (Non-Af Amer) Glucose Lactic Acid 10.0 H Calcium Total Bilirubin AST ALT Alkaline Phosphatase Total Protein Albumin 06/27/16 19:20 Troponin I 0.023 Impressions: Chest X-Ray 06/27/16 14:21 IMPRESSION: No acute findings. Head CT 06/27/16 14:40 IMPRESSION: MILD CHRONIC CHANGES OF ATROPHY AND MICROVASCULAR ISCHEMIA. NO ACUTE PROCESS. Abdomen/Pelvis CT 06/27/16 15:53 IMPRESSION: 9 cm left inguinal hernia which contains a segment of sigmoid colon. There is mild stranding in the retroperitoneal fat, no definite evidence of incarceration. There is moderate impaction of stool in the rectosigmoid colon. The the remainder of the colon proximal to the hernia sac is largely fluid filled. No dilated small bowel. Fluid-filled esophagus, correlate for history of achalasia. Assessment & Plan - Diagnosis (1) Hypotension Is this a current diagnosis for this admission?: YesPlan: Mr. Fink continued to do poorly throughout the morning. Continued hypotension, tachypnea. Dr. Esquivel was consulted for impending respiratory failure and critical care. The patient was intubated successfully by anesthesia. The esophagus was suctioned and an NG tube was placed, both of which yielded possibly 1.5 L of dark brown, possibly sanguinous gastric contents. Not clearly coffee grounds, more liquid but still suspicious for blood. Another bowel movement this morning, again nonbloody/non-mucousy/non-malodorous. After having spoke with Dr. Gibson but the situation last evening, I again asked his assistance in reevaluating the patient and situation. Again the abdominal exam yielded tenderness only to very deep palpation. No rebound. No guarding. If the patient does have a GI bleed, etc. unclear as to whether this is secondary to the hypotension/sepsis/stress or if there was a primary abdominal event. Dr. Duarte talked to the brother about a central line and the brother consented this time. Central line was placed. See operative note. Continued aggressive fluid resuscitation will be undertaken. Repeat labs at 1300. Still too unstable for surgery/transfer. If the patient becomes more stable, we will again consider exploratory laparotomy, as no other etiology has yet been identified. (2) Encephalopathy acute Is this a current diagnosis for this admission?: Yes (3) SIRS due to infectious process with organ dysfunction Is this a current diagnosis for this admission?: Yes (4) Altered mental status Qualifiers: Altered mental status type: unspecified Qualified Code(s): R41.82 - Altered mental status, unspecified Is this a current diagnosis for this admission?: Yes (5) Chronic obstructive pulmonary disease Qualifiers: COPD type: unspecified COPD Qualified Code(s): J44.9 - Chronic obstructive pulmonary disease, unspecified (6) Chronic systolic heart failure Is this a current diagnosis for this admission?: Yes (7) Diabetes mellitus type II, controlled Is this a current diagnosis for this admission?: Yes (9) Schizophrenia Is this a current diagnosis for this admission?: Yes
--- NOTE | 2016-06-28 11:21 | Operative Report ---
Operative Report DATE OF SURGERY: 06/28/16 PREOPERATIVE DIAGNOSIS: Hypotension on pressors, critically ill POSTOPERATIVE DIAGNOSIS: Hypotension on pressors, critically ill OPERATION: Right internal jugular vein central venous line placement with ultrasound guidance SURGEON: ROHIT OLIVO ANESTHESIA: Local TISSUE REMOVED OR ALTERED: No specimens COMPLICATIONS: None noted. Chest x-rays pending. ESTIMATED BLOOD LOSS: minimal PROCEDURE: Timeout was performed. The patient was prepped and draped in normal sterile fashion. Ultrasound was used to identify the right internal jugular vein and right common carotid artery. The skin over the vein was infiltrated with local anesthetic. An 11 blade scalpel was used to make a skin clovis. Under ultrasound guidance, a micropuncture needle was used to cannulate the right internal jugular vein with return of nonpulsatile dark red venous blood. Wire catheter exchange/Seldinger technique was used to upsize to a [employer] guidewire. The tract was dilated. Catheter was placed over the guidewire. The guidewire was removed. All lumens easily aspirated and flushed. The catheter was sewn in place at the skin and at the end hub. A Biopatch was placed. A sterile dressing was placed. All sharps were accounted for and disposed of properly. The patient tolerated the procedure well. A chest x-ray was ordered and is pending at the time of this note.
[2016-06-28] MEDS ORDERED: NORMAL SALINE INJ/PF 0.9% 10 ML SDV IV PRN (11:26)
[2016-06-28 11:31] LABS: ARTERIAL BLOOD BASE EXCESS -14.3 mmol/L; ARTERIAL BLOOD O2 SATURATION 93.7 % (94-98)
[2016-06-28] MEDS: ENOXAPARIN SODIUM INJ 40 MG/0.4 ML DISP.SYRIN SUBCUT SCH (11:47)
[2016-06-28] MEDS: PROPOFOL 100 ML IV PRN ×3 (11:49→20:07)
[2016-06-28] MEDS: METRONIDAZOLE 500 MG/NS RTU 100 ML IV SCH ×2 (11:56→17:26)
--- NOTE | 2016-06-28 12:12 | PDOC PROGRESS REPORT ---
Subjective Progress Note for:: 06/28/16 Subjective:: Patient continue to demonstrate hemodynamic instability with need for dual pressor medication support with IV fluid resuscitation. There is associated tachypnea on supplemental oxygen at 100 % non-rebreathing face mask. No reported fever, nausea, or vomiting. Denied definite abdominal pain. Requesting for water oral intake. Physical Exam Vital Signs: Temp Pulse Resp BP Pulse Ox 99.1 F 102 H 20 105/59 L 96 06/28/16 08:00 06/28/16 10:53 06/28/16 11:05 06/28/16 11:05 06/28/16 11:05 Intake & Output 06/27/16 06/28/16 06/29/16 06:59 06:59 06:59 Output Total 300 200 Balance -300 -200 Weight 103 kg General appearance: PRESENT: cooperative - but demonstrate acute respiratory distress with tachypnea. ABSENT: no acute distress, disheveled, hard of hearing , mild distress, morbidly obese, obese, severe distress, thin, well-developed, well-nourished, other Head exam: PRESENT: atraumatic, normocephalic Eye exam: PRESENT: conjunctiva pink, EOMI, PERRLA Mouth exam: PRESENT: dry mucosa Throat exam: ABSENT: post pharyngeal erythema, tonsillar erythema, tonsillar exudate, tonsillogmegaly, other Neck exam: PRESENT: full ROM. ABSENT: carotid bruit, JVD, lymphadenopathy, thyromegaly Respiratory exam: PRESENT: decreased breath sounds, tachypnea. ABSENT: accessory muscle use, chest wall tenderness, clear to auscultation debi, crackles , prolonged expiratory phas, rales, retraction, rhonchi, stridor, symmetrical, unlabored, wheezes, other Cardiovascular exam: PRESENT: RRR. ABSENT: diastolic murmur, rubs, systolic murmur GI/Abdominal exam: PRESENT: tenderness - to deep palpation in lower quadrant left > right. No demonstrable hernia due to current position. ABSENT: ascites, diminished bowel sounds, distended, firm, guarding, hernia, hyperactive bowel sounds, hypoactive bowel sounds, mass, Gentile's sign, normal bowel sounds, organolmegaly, rebound, rigid, soft, other Extremities exam: PRESENT: full ROM, pedal edema - chronic to lower left leg Neurological exam: PRESENT: alert, awake, oriented to person, other - generalized deconditioning Psychiatric exam: PRESENT: appropriate affect, normal mood. ABSENT: homicidal ideation, suicidal ideation Skin exam: PRESENT: dry, intact, warm. ABSENT: cyanosis, rash Results Laboratory Results: 06/28/16 06:45 06/28/16 06:45 06/27/16 06/27/16 06/27/16 21:50 21:50 21:50 WBC 8.8 RBC 4.85 Hgb 15.4 Hct 46.6 MCV 96 MCH 31.8 MCHC 33.1 RDW 13.9 Plt Count 116 L Seg Neutrophils % Lymphocytes % Monocytes % Eosinophils % Basophils % Absolute Neutrophils Absolute Lymphocytes Absolute Monocytes Absolute Eosinophils Absolute Basophils Carbonic Acid HCO3/H2CO3 Ratio ABG pH ABG pCO2 ABG pO2 ABG HCO3 ABG O2 Saturation ABG Base Excess FiO2 Sodium Potassium Chloride Carbon Dioxide Anion Gap BUN Creatinine 1.16 Est GFR ( Amer) > 60 Est GFR (Non-Af Amer) > 60 Glucose Lactic Acid 8.9 H Calcium Total Bilirubin AST ALT Alkaline Phosphatase Total Protein Albumin 06/28/16 06/28/16 06/28/16 04:25 06:45 06:45 WBC 8.2 RBC 4.52 Hgb 14.2 Hct 44.1 MCV 98 H MCH 31.3 MCHC 32.1 RDW 14.0 Plt Count 106 L Seg Neutrophils % Not Reportable Lymphocytes % Not Reportable Monocytes % Not Reportable Eosinophils % Not Reportable Basophils % Not Reportable Absolute Neutrophils Not Reportable Absolute Lymphocytes Not Reportable Absolute Monocytes Not Reportable Absolute Eosinophils Not Reportable Absolute Basophils Not Reportable Carbonic Acid 0.78 L HCO3/H2CO3 Ratio 13:1 ABG pH 7.22 L ABG pCO2 26.0 L ABG pO2 65.0 L ABG HCO3 10.4 L ABG O2 Saturation 89.1 L ABG Base Excess -15.6 FiO2 ROOM AIR Sodium 134.2 L Potassium 4.6 D Chloride 99 Carbon Dioxide 12 L D Anion Gap 23 H BUN 28 H Creatinine 1.43 H Est GFR ( Amer) > 60 Est GFR (Non-Af Amer) 49 L Glucose 77 Lactic Acid Calcium 9.1 Total Bilirubin 1.3 AST 54 ALT 35 Alkaline Phosphatase 53 Total Protein 5.3 L Albumin 3.1 L 06/28/16 06/28/16 06:45 10:52 WBC RBC Hgb Hct MCV MCH MCHC RDW Plt Count Seg Neutrophils % Lymphocytes % Monocytes % Eosinophils % Basophils % Absolute Neutrophils Absolute Lymphocytes Absolute Monocytes Absolute Eosinophils Absolute Basophils Carbonic Acid 1.45 H HCO3/H2CO3 Ratio 10:1 ABG pH 7.11 L* ABG pCO2 48.3 H ABG pO2 90.4 ABG HCO3 14.9 L ABG O2 Saturation 93.7 L ABG Base Excess -14.3 FiO2 100% Sodium Potassium Chloride Carbon Dioxide Anion Gap BUN Creatinine Est GFR ( Amer) Est GFR (Non-Af Amer) Glucose Lactic Acid 10.0 H Calcium Total Bilirubin AST ALT Alkaline Phosphatase Total Protein Albumin 06/27/16 19:20 Troponin I 0.023 Impressions: Head CT 06/27/16 14:40 IMPRESSION: MILD CHRONIC CHANGES OF ATROPHY AND MICROVASCULAR ISCHEMIA. NO ACUTE PROCESS. Abdomen/Pelvis CT 06/27/16 15:53 IMPRESSION: 9 cm left inguinal hernia which contains a segment of sigmoid colon. There is mild stranding in the retroperitoneal fat, no definite evidence of incarceration. There is moderate impaction of stool in the rectosigmoid colon. The the remainder of the colon proximal to the hernia sac is largely fluid filled. No dilated small bowel. Fluid-filled esophagus, correlate for history of achalasia. Chest X-Ray 06/28/16 00:00 IMPRESSION: 1. Support tubes and lines as above. 2. Linear bibasilar opacities likely representing atelectasis. Retrocardiac opacity likely representing atelectasis, aspiration, edema, or infiltrate. Small lung volumes SUPPORT DEVICE(S) IN EXPECTED LOCATIONS. Assessment & Plan - Diagnosis (1) SIRS due to infectious process with organ dysfunction Is this a current diagnosis for this admission?: YesPlan: Continue current medication management. Consider addition of pressor support medication if mean arterial pressure is less than 60mmHg. I will request pulmonology consultation with Dr Esquivel for ventilatory support in view of his high work of breathing, worsening lactic acid level and abnormal ABG. He will continue of triple antibiotic coverage with Cefepime, Levofloxacin and Vancomycin pending culture findings. I discussed case with his brother earlier this morning during my bedside visit. Patient's overall prognosis remain very poor. (2) Hyponatremia Is this a current diagnosis for this admission?: Yes (3) Weakness generalized Is this a current diagnosis for this admission?: Yes (4) Schizophrenia Is this a current diagnosis for this admission?: Yes (5) HLD (hyperlipidemia) Qualifiers: Hyperlipidemia type: pure hypercholesterolemia Qualified Code(s): E78.00 - Pure hypercholesterolemia, unspecified; E78.0 - Pure hypercholesterolemia Is this a current diagnosis for this admission?: YesPlan: Continue current medication management. (6) Chronic obstructive pulmonary disease Qualifiers: COPD type: unspecified COPD Qualified Code(s): J44.9 - Chronic obstructive pulmonary disease, unspecified Is this a current diagnosis for this admission?: YesPlan: Continue current medication management. (7) Chronic systolic heart failure Is this a current diagnosis for this admission?: YesPlan: Continue current medication management. (8) Diabetes mellitus type II, controlled Qualifiers: Diabetes mellitus complication status: with unspecified complications Diabetes mellitus mcfp insulin use: without intermodal customer service use Qualified Code(s): E11.8 - Type 2 diabetes mellitus with unspecified complications; Z79.4 - detention (current) use of insulin Is this a current diagnosis for this admission?: YesPlan: Continue current medication management. (9) Abdominal pain Qualifiers: Abdominal location: lower abdomen, unspecified Qualified Code(s): R10.30 - Lower abdominal pain, unspecified Is this a current diagnosis for this admission?: YesPlan: There was demonstrable inguinal hernia on CT scan of abdomen and pelvic upon presentation which has been easily reduced. There is no significant physical examination findings to suggest ongoing incarceration or significant intra- abdominal pathology. His leukocytosis has resolved comparatively. I will discuss further with surgical team with regard for any surgical intervention based of patient current clinical status and persistent hemodynamic instability. - Time Time Spent with patient: 35 or more minutes Medications reviewed and adjusted accordingly: Yes Anticipated discharge: Other Within: Other - Inpatient Certification Based on my medical assessment, after consideration of the patient's comorbidities, presenting symptoms, or acuity I expect that the services needed warrant INPATIENT care.: Yes I certify that my determination is in accordance with my understanding of Medicare's requirements for reasonable and necessary INPATIENT services [42 CFR 412.3e].: Yes Medical Necessity: Need Close Monitoring Due to Risk of Patient Decompensation, Need For IV Fluids, Need For Continuous Telemetry Monitoring, Need for IV Antibiotics, Risk of Complication if Not Cared For in Hospital Post Hospital Care: D/C Magnetic Tape Winder Documentation - Plan Summary Plan Summary: See attending physician orders for details.
[2016-06-28 12:59] LABS: APPEARANCE,URINE SLIGHTLY-CLOUDY; BILIRUBIN,URINE NEGATIVE (NEGATIVE); GLUCOSE, URINE NEGATIVE (NEGATIVE); KETONES,URINE TRACE mg/dL (NEGATIVE); LEUKOCYTE ESTERASE,URINE NEGATIVE (NEGATIVE); NITRITE,URINE NEGATIVE (NEGATIVE); PROTEIN,URINE 30 mg/dL (NEGATIVE); URINE SPECIFIC GRAVITY 1.017
[2016-06-28 13:11] LABS: ARTERIAL BLOOD BASE EXCESS -13.5 mmol/L; ARTERIAL BLOOD O2 SATURATION 84.2 % (94-98)
[2016-06-28 13:25] LABS: HEMATOCRIT 33.9 % (37.9-51.0); MEAN CORPUSCULAR HEMOGLOBIN 32.2 pg (27.0-33.4); MEAN CORPUSCULAR HGB CONC 33.4 g/dL (32.0-36.0); MEAN CORPUSCULAR VOLUME 96 fl (80-97); RED BLOOD COUNT 3.52 10^6/uL (4.35-5.55); RED CELL DISTRIBUTION WIDTH 13.8 % (11.5-14.0); WHITE BLOOD COUNT 6.3 10^3/uL (4.0-10.5)
[2016-06-28 13:28] LABS: PROTHROMBIN TIME 23.3 SEC (11.4-15.4)
[2016-06-28 13:29] LABS: PARTIAL THROMBOPLASTIN TIME 51.5 SEC (23.5-35.8)
--- NOTE | 2016-06-28 13:30 | PDOC CONSULTATION ---
Consultation Consult Date: 06/28/16 Attending physician:: MARYANN ASHLEY Consult reason:: Septic shock History of Present Illness Admission Date/PCP: 06/27/16 19:18 MARYANN ASHLEY History of Present Illness: Current information gleaned from medical records as patient is presenting now with respiratory rate of 40-44 and confused unable to answer questions no family members are at bedside. Mr. Fink is 66-year-old white male with schizophrenia, current heavy smoker, diabetes, coronary artery disease status post CABG, COPD, CHF, hyper lipidemia, hypertension and occasional bouts of hypotension. The patient is confused and difficult to understand. The history is gleaned from his SPECIAL WARFARE OPERATOR who accompanies him, the patient himself, and the patient's brother Justyn via phone. Apparently the patient can ambulate around his home and get to the bathroom, however he does wear a diaper due to urinary and possibly fecal incontinence. The nurse's aide reports that he does all his own showering and changing of dirty diapers. She reports that she does not visualize his groin, genitals, nor perineum, and therefore was not aware of a severe bilateral groin fungal infection. This was discovered by the ED nurses and EMS. They also report a left groin hernia. The patient verifies a left groin hernia of many years duration. By report from the patient and his brother , the patient has not historically been felt to be a surgical candidate for hernia repair as well as other surgeries including cataract surgery based on his poor health. The patient has occasional discomfort from his hernia but no disruption in his bowel habits. Per the brother the patient's usual stool pattern are periods of constipation which resolve with large volume stool and diarrhea. Today the nurse reports the patient spoke of more abdominal discomfort then normal. The patient indicates the abdominal discomfort is in the groin and lower abdomen. He reports it is mild in severity. His home SPECIAL WARFARE OPERATOR reports it was moderate in severity earlier today, disrupting the patient's normal afternoon nap. The patient and the SPECIAL WARFARE OPERATOR denying nausea, vomiting, fevers , chills, sweats, tremors, bloody stools. They reported general fatigue. The patient was disimpacted by the ED provider. I then saw the patient incontinent of loose stool approximately an hour later which was brown and relatively unremarkable. It was neither bloody, mucousy nor malodorous. Later in the night pest control pilot in the ICU, I repeated the rectal exam which failed to show any masses, but did produce more copious brown loose stools. Past Medical History Cardiac Medical History: Reports: Congestive Heart Failure, Coronary Artery Disease, Myocardial Infarction, Hyperlipidema, Hypertension Pulmonary Medical History: Reports: Chronic Obstructive Pulmonary Disease (COPD) , Other - Tobacco abuse active Neurological Medical History: Endocrine Medical History: Reports: Diabetes Mellitus Type 2 Renal/ Medical History: Reports: None GI Medical History: Reports: Gastroesophageal Reflux Disease Musculoskeltal Medical History: Reports: Arthritis Psychiatric Medical History: Reports: Depression, Schizoaffective Disorder - Schizophrenia, Tobacco Dependency, Other - Schizophrenia Hematology: Denies: Anemia, Bleeding Tendencies Past Surgical History Past Surgical History: Reports: Cardiac Catheterization, Coronary Artery Bypass Graft, Herniorrhaphy - The brother leaves the patient had herniorrhaphy several decades ago. Social History Information Source: [facility] Records Lives with: Alone Smoking Status: Current Every Day Smoker Cigarettes Packs Per Day: 1 Frequency of Alcohol Use: Rare Hx Recreational Drug Use: No Drugs: None Hx Prescription Drug Abuse: No Family History Family History: Reviewed & Not Pertinent Parental Family History Reviewed: No Children Family History Reviewed: No Sibling(s) Family History Reviewed.: No Medication/Allergy Home Medications: Allopurinol [Zyloprim 100 mg Tablet] 100 mg PO DAILY 06/28/16 Clonidine HCl [Catapres 0.2 mg Tablet] 0.2 mg PO Q12 06/28/16 Duloxetine HCl [Cymbalta] 60 mg PO BID 06/28/16 Ezetimibe/Simvastatin [Vytorin 10-20 mg Tablet] 1 tab PO DAILY 06/28/16 Furosemide [Lasix 40 mg Tablet] 40 mg PO QAM 06/28/16 Lisinopril [Prinivil 40 mg Tablet] 06/28/16 Lisinopril [Prinivil] 20 mg PO DAILY 06/28/16 Magnesium Oxide 400 mg PO DAILY 06/28/16 Metformin HCl [Glucophage] 1,000 mg PO BID 06/28/16 Paliperidone Palmitate [Invega Trinza] 156 mg IM [id number] 06/28/16 Trazodone HCl 25 mg PO QHS 06/28/16 Umeclidinium Brm/Vilanterol Tr [Anoro Ellipta 62.5-25 Mcg INH] 1 inh PO DAILY Allergies/Adverse Reactions: Penicillins Allergy (Verified 04/16/16 17:15) Sulfa (Sulfonamide Antibiotics) Allergy (Verified 04/16/16 17:15) Review of Systems ROS unobtainable: Due to endotracheal tube, Due to mental status Physical Exam Vital Signs: Temp Pulse Resp BP Pulse Ox 98.6 F 77 24 H 85/52 L 96 06/28/16 12:00 06/28/16 12:00 06/28/16 12:06 06/28/16 12:06 06/28/16 13:10 Intake & Output 06/27/16 06/28/16 06/29/16 06:59 06:59 06:59 Output Total 300 400 Balance -300 -400 Weight 103 kg General appearance: PRESENT: disheveled, obese, well-developed, well-nourished Head exam: PRESENT: atraumatic Eye exam: PRESENT: conjunctiva pink, EOMI Mouth exam: PRESENT: dry mucosa, neck supple, tongue midline Neck exam: ABSENT: carotid bruit, JVD, lymphadenopathy, thyromegaly Respiratory exam: PRESENT: decreased breath sounds, prolonged expiratory phas, rales, symmetrical, unlabored Cardiovascular exam: PRESENT: irregular rhythm, +S1, +S2 Pulses: PRESENT: normal radial pulses GI/Abdominal exam: PRESENT: tenderness, other. ABSENT: distended, guarding Rectal exam: PRESENT: black stool Gentrourinary exam: PRESENT: indwelling catheter Skin exam: PRESENT: dry, warm Results Laboratory Results: 06/27/16 06/27/16 06/27/16 21:50 21:50 21:50 WBC 8.8 RBC 4.85 Hgb 15.4 Hct 46.6 MCV 96 MCH 31.8 MCHC 33.1 RDW 13.9 Plt Count 116 L Seg Neutrophils % Lymphocytes % Monocytes % Eosinophils % Basophils % Absolute Neutrophils Absolute Lymphocytes Absolute Monocytes Absolute Eosinophils Absolute Basophils Carbonic Acid HCO3/H2CO3 Ratio ABG pH ABG pCO2 ABG pO2 ABG HCO3 ABG O2 Saturation ABG Base Excess FiO2 Sodium Potassium Chloride Carbon Dioxide Anion Gap BUN Creatinine 1.16 Est GFR ( Amer) > 60 Est GFR (Non-Af Amer) > 60 Glucose Lactic Acid 8.9 H Calcium Total Bilirubin AST ALT Alkaline Phosphatase Total Protein Albumin Urine Color Urine Appearance Urine pH Ur Specific [place] Urine Protein Urine Glucose (UA) Urine Ketones Urine Blood Urine Nitrite Ur Leukocyte Esterase Urine WBC (Auto) Urine RBC (Auto) 06/28/16 06/28/16 06/28/16 04:25 06:45 06:45 WBC 8.2 RBC 4.52 Hgb 14.2 Hct 44.1 MCV 98 H MCH 31.3 MCHC 32.1 RDW 14.0 Plt Count 106 L Seg Neutrophils % Not Reportable Lymphocytes % Not Reportable Monocytes % Not Reportable Eosinophils % Not Reportable Basophils % Not Reportable Absolute Neutrophils Not Reportable Absolute Lymphocytes Not Reportable Absolute Monocytes Not Reportable Absolute Eosinophils Not Reportable Absolute Basophils Not Reportable Carbonic Acid 0.78 L HCO3/H2CO3 Ratio 13:1 ABG pH 7.22 L ABG pCO2 26.0 L ABG pO2 65.0 L ABG HCO3 10.4 L ABG O2 Saturation 89.1 L ABG Base Excess -15.6 FiO2 ROOM AIR Sodium 134.2 L Potassium 4.6 D Chloride 99 Carbon Dioxide 12 L D Anion Gap 23 H BUN 28 H Creatinine 1.43 H Est GFR ( Amer) > 60 Est GFR (Non-Af Amer) 49 L Glucose 77 Lactic Acid Calcium 9.1 Total Bilirubin 1.3 AST 54 ALT 35 Alkaline Phosphatase 53 Total Protein 5.3 L Albumin 3.1 L Urine Color Urine Appearance Urine pH Ur Specific [place] Urine Protein Urine Glucose (UA) Urine Ketones Urine Blood Urine Nitrite Ur Leukocyte Esterase Urine WBC (Auto) Urine RBC (Auto) 06/28/16 06/28/16 06/28/16 06:45 10:52 12:20 WBC RBC Hgb Hct MCV MCH MCHC RDW Plt Count Seg Neutrophils % Lymphocytes % Monocytes % Eosinophils % Basophils % Absolute Neutrophils Absolute Lymphocytes Absolute Monocytes Absolute Eosinophils Absolute Basophils Carbonic Acid 1.45 H HCO3/H2CO3 Ratio 10:1 ABG pH 7.11 L* ABG pCO2 48.3 H ABG pO2 90.4 ABG HCO3 14.9 L ABG O2 Saturation 93.7 L ABG Base Excess -14.3 FiO2 100% Sodium Potassium Chloride Carbon Dioxide Anion Gap BUN Creatinine Est GFR ( Amer) Est GFR (Non-Af Amer) Glucose Lactic Acid 10.0 H Calcium Total Bilirubin AST ALT Alkaline Phosphatase Total Protein Albumin Urine Color JEWEL Urine Appearance SLIGHTLY-CLOUDY Urine pH 5.0 Ur Specific [place] 1.017 Urine Protein 30 H Urine Glucose (UA) NEGATIVE Urine Ketones TRACE H Urine Blood MODERATE H Urine Nitrite NEGATIVE Ur Leukocyte Esterase NEGATIVE Urine WBC (Auto) 3 Urine RBC (Auto) 5 06/28/16 12:53 WBC RBC Hgb Hct MCV MCH MCHC RDW Plt Count Seg Neutrophils % Lymphocytes % Monocytes % Eosinophils % Basophils % Absolute Neutrophils Absolute Lymphocytes Absolute Monocytes Absolute Eosinophils Absolute Basophils Carbonic Acid 1.35 HCO3/H2CO3 Ratio 11:1 ABG pH 7.14 L* ABG pCO2 44.8 ABG pO2 61.9 L ABG HCO3 14.9 L ABG O2 Saturation 84.2 L ABG Base Excess -13.5 FiO2 50% Sodium Potassium Chloride Carbon Dioxide Anion Gap BUN Creatinine Est GFR ( Amer) Est GFR (Non-Af Amer) Glucose Lactic Acid Calcium Total Bilirubin AST ALT Alkaline Phosphatase Total Protein Albumin Urine Color Urine Appearance Urine pH Ur Specific [place] Urine Protein Urine Glucose (UA) Urine Ketones Urine Blood Urine Nitrite Ur Leukocyte Esterase Urine WBC (Auto) Urine RBC (Auto) 06/27/16 19:20 Troponin I 0.023 Impressions: Head CT 06/27/16 14:40 IMPRESSION: MILD CHRONIC CHANGES OF ATROPHY AND MICROVASCULAR ISCHEMIA. NO ACUTE PROCESS. Abdomen/Pelvis CT 06/27/16 15:53 IMPRESSION: 9 cm left inguinal hernia which contains a segment of sigmoid colon. There is mild stranding in the retroperitoneal fat, no definite evidence of incarceration. There is moderate impaction of stool in the rectosigmoid colon. The the remainder of the colon proximal to the hernia sac is largely fluid filled. No dilated small bowel. Fluid-filled esophagus, correlate for history of achalasia. Chest X-Ray 06/28/16 00:00 IMPRESSION: 1. Support tubes and lines as above. 2. Linear bibasilar opacities likely representing atelectasis. Retrocardiac opacity likely representing atelectasis, aspiration, edema, or infiltrate. Small lung volumes SUPPORT DEVICE(S) IN EXPECTED LOCATIONS. Assessment & Plan - Diagnosis (1) Septic shock Is this a current diagnosis for this admission?: YesPlan: 3 vasopressor agents dramatic left shift with bandemia ;no radiographic evidence for pneumonia; profound lactic acidosis (2) Abdominal pain Qualifiers: Abdominal location: lower abdomen, unspecified Qualified Code(s): R10.30 - Lower abdominal pain, unspecified Is this a current diagnosis for this admission?: YesPlan: Presenting complaint being evaluated per surgery CT scan left inguinal hernia (3) Left inguinal hernia Is this a current diagnosis for this admission?: YesPlan: As per CT scan (4) Chronic obstructive pulmonary disease Qualifiers: COPD type: unspecified COPD Qualified Code(s): J44.9 - Chronic obstructive pulmonary disease, unspecified Is this a current diagnosis for this admission?: YesPlan: Continue bronchodilator therapy (5) Chronic systolic heart failure Is this a current diagnosis for this admission?: YesPlan: Volume resuscitation may be due to shock because CVP (6) Acute renal failure (ARF) Is this a current diagnosis for this admission?: YesPlan: ATN and or rhabdomyolysis Labs- All tests 24 hr 08/07/15 08/09/15 08/11/15 15:15 18:50 04:44 Creatinine 0.84 0.76 0.48 L 08/11/15 08/12/15 08/13/15 13:35 05:38 17:49 Creatinine 0.63 0.58 0.72 08/15/15 08/15/15 03/05/16 05:45 09:17 08:30 Creatinine 0.55 0.67 0.82 04/16/16 04/17/16 04/18/16 11:20 15:05 04:11 Creatinine 1.03 0.81 0.84 04/19/16 04/21/16 04/22/16 08:56 06:02 18:50 Creatinine 0.68 0.69 0.89 04/23/16 04/25/16 06/27/16 18:10 05:34 15:10 Creatinine 0.63 0.71 1.13 06/27/16 06/28/16 21:50 06:45 Creatinine 1.16 1.43 H - Time Critical Time spent with patient: 35 or more minutes - 75 minutes
[2016-06-28 13:38] LABS: ALANINE AMINOTRANSFERASE 33 U/L (21-72); ALBUMIN 1.9 g/dL (3.5-5.0); ALKALINE PHOSPHATASE 34 U/L (38-126); ANION GAP 13 (5-19); BILIRUBIN,TOTAL 0.8 mg/dL (0.2-1.3); BLOOD UREA NITROGEN 28 mg/dL (7-20); CARBON DIOXIDE 15 mmol/L (22-30); CHLORIDE 105 mmol/L (98-107); CREATININE RESULT 1.25 mg/dL (0.52-1.25); GLUCOSE 95 mg/dL (75-110); POTASSIUM 3.9 mmol/L (3.6-5.0); SODIUM 132.5 mmol/L (137-145); TOTAL PROTEIN 3.6 g/dL (6.3-8.2)
[2016-06-28 13:40] LABS: ASPARTATE AMINO TRANSFERASE 41 U/L (17-59)
[2016-06-28] MEDS ORDERED: NORMAL SALINE 250 ML IV PRN ×2 (13:59)
[2016-06-28 14:08] LABS: HEMOGLOBIN 11.3 g/dL (13.5-17.0)
[2016-06-28] MEDS: DEXTROSE 5%-WATER 250 ML with PHENYLEPHRINE HCL 40 MG IV PRN ×6 (14:22→22:25)
[2016-06-28 14:24] LABS: BAND NEUTROPHILS % (MANUAL) 23 % (3-5); BASOPHILS % (MANUAL) 0 % (0-2); EOSINOPHILS % (MANUAL) 0 % (0-6); LYMPHOCYTES % (MANUAL) 12 % (13-45); TOTAL CELLS COUNTED 100
[2016-06-28] MEDS: VANCOMYCIN HCL 1,000 MG in DEXTROSE 5%-WATER 250 ML IV SCH (14:26)
[2016-06-28 14:27] LABS: ANISOCYTOSIS SLIGHT; TOXIC VACUOLATION PRESENT
[2016-06-28 14:28] LABS: POLYCHROMASIA SLIGHT
[2016-06-28] MEDS ORDERED: PHYTONADIONE INJ 10 MG/1 ML AMPULE SUBCUT ONE (15:00)
[2016-06-28] MEDS ORDERED: CALCIUM GLUCONATE 1000 MG/10 ML INJ IV ONE ×2 (15:00→15:30)
[2016-06-28] MEDS ORDERED: CALCIUM GLUCONATE 2,000 MG in DEXTROSE 5%-WATER 100 ML IV ONE (15:30)
--- NOTE | 2016-06-28 16:49 | Progress Note ---
Provider Note Provider Note: Reviewed afternoon labs, spoke with sister for at least 20 minutes. Discussed plan/options. Still minimal tenderness to deep palpation only on abdominal exam. Inspected NG tube output. Output has slowed down considerably.
[2016-06-28] MEDS: PANTOPRAZOLE SODIUM 40 MG VIAL IV SCH (18:06)
[2016-06-28] MEDS ORDERED: DEXTROSE 5%-WATER 250 ML with NOREPINEPHRINE BITARTRATE 4 MG IV PRN ×2 (20:07)
[2016-06-28] MEDS ORDERED: ACETAMINOPHEN 650 MG SUPP.RECT PR ONE ×2 (22:21→23:15)
[2016-06-28] MEDS: NYSTATIN TOPICAL POWDER 15 GM TP SCH (22:27)
[2016-06-28] MEDS ORDERED: ACETAMINOPHEN 650 MG SUPP.RECT PR PRN (23:10)
[2016-06-29] MEDS: METRONIDAZOLE 500 MG/NS RTU 100 ML IV SCH ×4 (00:40→18:09)
[2016-06-29] MEDS: VANCOMYCIN HCL 1,000 MG in DEXTROSE 5%-WATER 250 ML IV SCH ×2 (02:10→14:25)
[2016-06-29] MEDS: DOPAMINE HCL/DEXTROSE 5%-WATER 250 ML IV PRN ×4 (02:11→22:39)
[2016-06-29] MEDS: DEXTROSE 5%-WATER 250 ML with PHENYLEPHRINE HCL 40 MG IV PRN ×12 (02:12→21:43)
[2016-06-29 05:21] LABS: ARTERIAL BLOOD BASE EXCESS -10.5 mmol/L; ARTERIAL BLOOD O2 SATURATION 97.3 % (94-98)
[2016-06-29 05:33] LABS: HEMATOCRIT 39.5 % (37.9-51.0); HEMOGLOBIN 13.2 g/dL (13.5-17.0); HGB HCT DIFFERENCE 0.1; MEAN CORPUSCULAR HEMOGLOBIN 31.7 pg (27.0-33.4); MEAN CORPUSCULAR HGB CONC 33.5 g/dL (32.0-36.0); MEAN CORPUSCULAR VOLUME 95 fl (80-97); RED BLOOD COUNT 4.17 10^6/uL (4.35-5.55); RED CELL DISTRIBUTION WIDTH 13.9 % (11.5-14.0)
[2016-06-29 05:43] LABS: ALANINE AMINOTRANSFERASE 44 U/L (21-72); ALBUMIN 2.1 g/dL (3.5-5.0); ALKALINE PHOSPHATASE 35 U/L (38-126); ANION GAP 12 (5-19); ASPARTATE AMINO TRANSFERASE 89 U/L (17-59); BILIRUBIN,DIRECT 0.1 mg/dL (0.0-0.3); BLOOD UREA NITROGEN 37 mg/dL (7-20); CALCIUM 7.4 mg/dL (8.4-10.2); CARBON DIOXIDE 13 mmol/L (22-30); CHLORIDE 101 mmol/L (98-107); CREATININE RESULT 1.18 mg/dL (0.52-1.25); SODIUM 125.6 mmol/L (137-145); TOTAL PROTEIN 4.2 g/dL (6.3-8.2); TRIGLYCERIDES 422 mg/dL (<150)
[2016-06-29 05:44] LABS: GLUCOSE 118 mg/dL (75-110)
[2016-06-29 05:53] LABS: POTASSIUM 5.1 mmol/L (3.6-5.0)
[2016-06-29] MEDS: NYSTATIN TOPICAL POWDER 15 GM TP SCH ×2 (05:59→13:51)
[2016-06-29] MEDS: PANTOPRAZOLE SODIUM 40 MG VIAL IV SCH ×2 (05:59→18:12)
[2016-06-29] MEDS ORDERED: LANSOPRAZOLE 30 MG TAB.RAP.DR NG SCH (06:00)
[2016-06-29 06:06] LABS: BASOPHILS % (MANUAL) 0 % (0-2); EOSINOPHILS % (MANUAL) 1 % (0-6); LYMPHOCYTES % (MANUAL) 21 % (13-45); TOTAL CELLS COUNTED 100
[2016-06-29] MEDS: PROPOFOL 100 ML IV PRN ×5 (06:06→21:43)
[2016-06-29 06:09] LABS: TOXIC GRANULATION SLIGHT; TOXIC VACUOLATION PRESENT
[2016-06-29 06:11] LABS: BAND NEUTROPHILS % (MANUAL) 26 % (3-5); BURR CELLS SLIGHT
[2016-06-29] MEDS ORDERED: MORPHINE SULFATE 10 MG/ML INJ IV PRN (09:15)
[2016-06-29] MEDS: DEXTROSE 5%-WATER 250 ML with NOREPINEPHRINE BITARTRATE 4 MG IV PRN ×6 (09:48→18:43)
[2016-06-29] MEDS: CEFEPIME 1 GM/D5W RTU 50 ML IV SCH (09:49)
[2016-06-29] MEDS: ENOXAPARIN SODIUM INJ 40 MG/0.4 ML DISP.SYRIN SUBCUT SCH (09:49)
[2016-06-29] MEDS: LEVOFLOXACIN 750 MG/D5W RTU 150 ML IV SCH (09:49)
[2016-06-29 11:00] LABS: FREE T3 1.9 pg/mL (2.77-5.27)
[2016-06-29 11:14] LABS: THYROID STIMULATING HORMONE 0.27 uIU/mL (0.47-4.68)
--- NOTE | 2016-06-29 16:38 | PDOC PROGRESS REPORT ---
Subjective Progress Note for:: 06/29/16 Subjective:: intubated Physical Exam Vital Signs: Temp Pulse Resp BP Pulse Ox 101.8 F H 100 25 H 96/71 L 98 06/29/16 05:59 06/29/16 09:02 06/29/16 06:26 06/29/16 08:58 06/29/16 08:58 Intake & Output 06/28/16 06/29/16 06/30/16 06:59 06:59 06:59 Intake Total 16226 Output Total 300 5780 Balance -300 5959 Weight 103 kg 108 kg General appearance: PRESENT: disheveled, well-developed, well-nourished Head exam: PRESENT: atraumatic, normocephalic Eye exam: PRESENT: conjunctiva pale Mouth exam: PRESENT: dry mucosa, neck supple, tongue midline, other - ET tube in place Neck exam: ABSENT: carotid bruit, JVD, lymphadenopathy, thyromegaly Respiratory exam: PRESENT: decreased breath sounds, prolonged expiratory phas, rales, rhonchi, symmetrical, tachypnea, unlabored Cardiovascular exam: PRESENT: irregular rhythm Pulses: PRESENT: normal radial pulses Rectal exam: PRESENT: black stool Gentrourinary exam: PRESENT: indwelling catheter Extremities exam: PRESENT: pedal edema Skin exam: PRESENT: dry, warm Results Laboratory Results: 06/29/16 05:10 06/29/16 05:10 06/28/16 06/28/16 06/28/16 06:45 10:52 12:20 WBC 8.2 RBC 4.52 Hgb 14.2 Hct 44.1 MCV 98 H MCH 31.3 MCHC 32.1 RDW 14.0 Plt Count 106 L Seg Neutrophils % Lymphocytes % Monocytes % Eosinophils % Basophils % Absolute Neutrophils Absolute Lymphocytes Absolute Monocytes Absolute Eosinophils Absolute Basophils Carbonic Acid 1.45 H HCO3/H2CO3 Ratio 10:1 ABG pH 7.11 L* ABG pCO2 48.3 H ABG pO2 90.4 ABG HCO3 14.9 L ABG O2 Saturation 93.7 L ABG Base Excess -14.3 FiO2 100% Sodium Potassium Chloride Carbon Dioxide Anion Gap BUN Creatinine Est GFR ( Amer) Est GFR (Non-Af Amer) Glucose Lactic Acid Calcium Total Bilirubin AST ALT Alkaline Phosphatase Total Protein Albumin Triglycerides Urine Color JEWEL Urine Appearance SLIGHTLY-CLOUDY Urine pH 5.0 Ur Specific [place] 1.017 Urine Protein 30 H Urine Glucose (UA) NEGATIVE Urine Ketones TRACE H Urine Blood MODERATE H Urine Nitrite NEGATIVE Ur Leukocyte Esterase NEGATIVE Urine WBC (Auto) 3 Urine RBC (Auto) 5 Blood Type 06/28/16 06/28/16 06/28/16 12:53 13:00 13:00 WBC 6.3 RBC 3.52 L Hgb 11.3 L D Hct 33.9 L MCV 96 MCH 32.2 MCHC 33.4 RDW 13.8 Plt Count 79 L Seg Neutrophils % Not Reportable Lymphocytes % Not Reportable Monocytes % Not Reportable Eosinophils % Not Reportable Basophils % Not Reportable Absolute Neutrophils Not Reportable Absolute Lymphocytes Not Reportable Absolute Monocytes Not Reportable Absolute Eosinophils Not Reportable Absolute Basophils Not Reportable Carbonic Acid 1.35 HCO3/H2CO3 Ratio 11:1 ABG pH 7.14 L* ABG pCO2 44.8 ABG pO2 61.9 L ABG HCO3 14.9 L ABG O2 Saturation 84.2 L ABG Base Excess -13.5 FiO2 50% Sodium Potassium Chloride Carbon Dioxide Anion Gap BUN Creatinine Est GFR ( Amer) Est GFR (Non-Af Amer) Glucose Lactic Acid 4.6 H Calcium Total Bilirubin AST ALT Alkaline Phosphatase Total Protein Albumin Triglycerides Urine Color Urine Appearance Urine pH Ur Specific [place] Urine Protein Urine Glucose (UA) Urine Ketones Urine Blood Urine Nitrite Ur Leukocyte Esterase Urine WBC (Auto) Urine RBC (Auto) Blood Type 06/28/16 06/28/16 06/29/16 13:00 17:30 05:10 WBC RBC Hgb Hct MCV MCH MCHC RDW Plt Count Seg Neutrophils % Lymphocytes % Monocytes % Eosinophils % Basophils % Absolute Neutrophils Absolute Lymphocytes Absolute Monocytes Absolute Eosinophils Absolute Basophils Carbonic Acid 0.78 L HCO3/H2CO3 Ratio 17:1 ABG pH 7.34 L ABG pCO2 25.9 L ABG pO2 99.7 ABG HCO3 13.5 L ABG O2 Saturation 97.3 ABG Base Excess -10.5 FiO2 55% Sodium 132.5 L Potassium 3.9 Chloride 105 Carbon Dioxide 15 L Anion Gap 13 BUN 28 H Creatinine 1.25 Est GFR ( Amer) > 60 Est GFR (Non-Af Amer) 57 L Glucose 95 Lactic Acid Calcium 7.0 L* Total Bilirubin 0.8 AST 41 ALT 33 Alkaline Phosphatase 34 L Total Protein 3.6 L Albumin 1.9 L Triglycerides Urine Color Urine Appearance Urine pH Ur Specific [place] Urine Protein Urine Glucose (UA) Urine Ketones Urine Blood Urine Nitrite Ur Leukocyte Esterase Urine WBC (Auto) Urine RBC (Auto) Blood Type A POSITIVE 06/29/16 06/29/16 05:10 05:10 WBC 5.0 RBC 4.17 L Hgb 13.2 L Hct 39.5 MCV 95 MCH 31.7 MCHC 33.5 RDW 13.9 Plt Count 60 L Seg Neutrophils % Not Reportable Lymphocytes % Not Reportable Monocytes % Not Reportable Eosinophils % Not Reportable Basophils % Not Reportable Absolute Neutrophils Not Reportable Absolute Lymphocytes Not Reportable Absolute Monocytes Not Reportable Absolute Eosinophils Not Reportable Absolute Basophils Not Reportable Carbonic Acid HCO3/H2CO3 Ratio ABG pH ABG pCO2 ABG pO2 ABG HCO3 ABG O2 Saturation ABG Base Excess FiO2 Sodium 125.6 L Potassium 5.1 H D Chloride 101 Carbon Dioxide 13 L Anion Gap 12 BUN 37 H Creatinine 1.18 Est GFR ( Amer) > 60 Est GFR (Non-Af Amer) > 60 Glucose 118 H Lactic Acid Calcium 7.4 L Total Bilirubin 1.0 AST 89 H ALT 44 Alkaline Phosphatase 35 L Total Protein 4.2 L Albumin 2.1 L Triglycerides 422 H Urine Color Urine Appearance Urine pH Ur Specific [place] Urine Protein Urine Glucose (UA) Urine Ketones Urine Blood Urine Nitrite Ur Leukocyte Esterase Urine WBC (Auto) Urine RBC (Auto) Blood Type 06/27/16 19:20 Troponin I 0.023 Impressions: Head CT 06/27/16 14:40 IMPRESSION: MILD CHRONIC CHANGES OF ATROPHY AND MICROVASCULAR ISCHEMIA. NO ACUTE PROCESS. Abdomen/Pelvis CT 06/27/16 15:53 IMPRESSION: 9 cm left inguinal hernia which contains a segment of sigmoid colon. There is mild stranding in the retroperitoneal fat, no definite evidence of incarceration. There is moderate impaction of stool in the rectosigmoid colon. The the remainder of the colon proximal to the hernia sac is largely fluid filled. No dilated small bowel. Fluid-filled esophagus, correlate for history of achalasia. Chest X-Ray 06/29/16 06:00 IMPRESSION: STABLE APPEARANCE OF THE CHEST. SUPPORT DEVICES UNCHANGED. Assessment & Plan - Diagnosis (1) Septic shock Is this a current diagnosis for this admission?: YesPlan: profound 3 pressor agents and large vol fluid res no pos culture normal cxr PROGNOSIS VERY POOR (2) Abdominal pain Qualifiers: Qualified Code(s): R10.30 - Lower abdominal pain, unspecified Is this a current diagnosis for this admission?: YesPlan: as I understand no plans surg at this time (3) Left inguinal hernia Is this a current diagnosis for this admission?: YesPlan: As per CT scan (4) Chronic obstructive pulmonary disease Qualifiers: Qualified Code(s): J44.9 - Chronic obstructive pulmonary disease, unspecified Is this a current diagnosis for this admission?: YesPlan: Continue bronchodilator therapy (5) Chronic systolic heart failure Is this a current diagnosis for this admission?: YesPlan: large volume fluid resque;hx chf;echocardiogram in progress (6) Acute renal failure (ARF) Is this a current diagnosis for this admission?: YesPlan: Labs- All tests 24 hr 08/07/15 08/09/15 08/11/15 15:15 18:50 04:44 Creatinine 0.84 0.76 0.48 L 08/11/15 08/12/15 08/13/15 13:35 05:38 17:49 Creatinine 0.63 0.58 0.72 08/15/15 08/15/15 03/05/16 05:45 09:17 08:30 Creatinine 0.55 0.67 0.82 04/16/16 04/17/16 04/18/16 11:20 15:05 04:11 Creatinine 1.03 0.81 0.84 04/19/16 04/21/16 04/22/16 08:56 06:02 18:50 Creatinine 0.68 0.69 0.89 04/23/16 04/25/16 06/27/16 18:10 05:34 15:10 Creatinine 0.63 0.71 1.13 06/27/16 06/28/16 21:50 06:45 Creatinine 1.16 1.43 H creatnine returns to normal BUN elevated - Time Critical Time spent with patient: 25-34 minutes Anticipated discharge: SNF - 30 min
--- NOTE | 2016-06-29 16:40 | PDOC PROGRESS REPORT ---
Subjective Progress Note for:: 06/29/16 Subjective:: Patient continue to demonstrate hemodynamic instability and currently on triple pressor medication support with IV fluid resuscitation. He has been intubated since last clinical assessment due to increase work of breathing, worsening metabolic acidosis and protection of airway due to intermittent change in mental status. Intubation process did revealed coffee ground material that may be from esophageal fluid collection as noted on his earlier radiological findings. There is associated newly developed fever with current use of cooling blanket. Brother at bedside at the time of my visit. Physical Exam Vital Signs: Temp Pulse Resp BP Pulse Ox 101.8 F H 100 29 H 78/57 L 97 06/29/16 05:59 06/29/16 09:02 06/29/16 14:56 06/29/16 14:56 06/29/16 14:56 Intake & Output 06/28/16 06/29/16 06/30/16 06:59 06:59 06:59 Intake Total 74357 Output Total 300 5780 1450 Balance -300 5959 -1450 Weight 103 kg 108 kg Physical Exam: Sedated, intubated and vent supported. ET and OG tubes in situ. Patient in [place] position due to persistent hypotension. General appearance: PRESENT: cooperative - on IV Propofol sedation Head exam: PRESENT: atraumatic, normocephalic Eye exam: PRESENT: conjunctiva pink, EOMI, PERRLA Mouth exam: PRESENT: moist, other - ET and OG tubes in place. Respiratory exam: PRESENT: decreased breath sounds - at lung bases. ABSENT: accessory muscle use, chest wall tenderness, clear to auscultation debi, crackles , prolonged expiratory phas, rales, retraction, rhonchi, stridor, symmetrical, tachypnea, unlabored, wheezes, other Cardiovascular exam: PRESENT: irregular rhythm. ABSENT: bradycardia, clicks, diastolic murmur, gallop, RRR, rubs, +S1, +S2, systolic murmur, tachycardia, other GI/Abdominal exam: PRESENT: hypoactive bowel sounds, tenderness - no significant demonstrable tenderness. ABSENT: ascites, diminished bowel sounds, distended, firm, guarding, hernia, hyperactive bowel sounds, mass, Gentile's sign , normal bowel sounds, organolmegaly, rebound, rigid, soft, other Gentrourinary exam: PRESENT: indwelling catheter Neurological exam: PRESENT: altered - on IV propofol but easily arousable Skin exam: PRESENT: dry, mottled - chronic, over feet an lower leg region, rash - in groin fold and suprapubic region due to yeast infestation Results Laboratory Results: 06/29/16 05:10 06/29/16 05:10 06/28/16 06/29/16 06/29/16 17:30 05:10 05:10 WBC 5.0 RBC 4.17 L Hgb 13.2 L Hct 39.5 MCV 95 MCH 31.7 MCHC 33.5 RDW 13.9 Plt Count 60 L Seg Neutrophils % Not Reportable Lymphocytes % Not Reportable Monocytes % Not Reportable Eosinophils % Not Reportable Basophils % Not Reportable Absolute Neutrophils Not Reportable Absolute Lymphocytes Not Reportable Absolute Monocytes Not Reportable Absolute Eosinophils Not Reportable Absolute Basophils Not Reportable Carbonic Acid 0.78 L HCO3/H2CO3 Ratio 17:1 ABG pH 7.34 L ABG pCO2 25.9 L ABG pO2 99.7 ABG HCO3 13.5 L ABG O2 Saturation 97.3 ABG Base Excess -10.5 FiO2 55% Sodium Potassium Chloride Carbon Dioxide Anion Gap BUN Creatinine Est GFR ( Amer) Est GFR (Non-Af Amer) Glucose Lactic Acid Calcium Magnesium Total Bilirubin AST ALT Alkaline Phosphatase Total Protein Albumin Triglycerides TSH Free T4 Free T3 pg/mL Blood Type A POSITIVE 06/29/16 06/29/16 06/29/16 05:10 05:10 05:10 WBC RBC Hgb Hct MCV MCH MCHC RDW Plt Count Seg Neutrophils % Lymphocytes % Monocytes % Eosinophils % Basophils % Absolute Neutrophils Absolute Lymphocytes Absolute Monocytes Absolute Eosinophils Absolute Basophils Carbonic Acid HCO3/H2CO3 Ratio ABG pH ABG pCO2 ABG pO2 ABG HCO3 ABG O2 Saturation ABG Base Excess FiO2 Sodium 125.6 L Potassium 5.1 H D Chloride 101 Carbon Dioxide 13 L Anion Gap 12 BUN 37 H Creatinine 1.18 Est GFR ( Amer) > 60 Est GFR (Non-Af Amer) > 60 Glucose 118 H Lactic Acid Calcium 7.4 L Magnesium 2.3 Total Bilirubin 1.0 AST 89 H ALT 44 Alkaline Phosphatase 35 L Total Protein 4.2 L Albumin 2.1 L Triglycerides 422 H TSH 0.27 L Free T4 1.40 Free T3 pg/mL 1.90 L Blood Type 06/29/16 09:50 WBC RBC Hgb Hct MCV MCH MCHC RDW Plt Count Seg Neutrophils % Lymphocytes % Monocytes % Eosinophils % Basophils % Absolute Neutrophils Absolute Lymphocytes Absolute Monocytes Absolute Eosinophils Absolute Basophils Carbonic Acid HCO3/H2CO3 Ratio ABG pH ABG pCO2 ABG pO2 ABG HCO3 ABG O2 Saturation ABG Base Excess FiO2 Sodium Potassium Chloride Carbon Dioxide Anion Gap BUN Creatinine Est GFR ( Amer) Est GFR (Non-Af Amer) Glucose Lactic Acid 2.7 H Calcium Magnesium Total Bilirubin AST ALT Alkaline Phosphatase Total Protein Albumin Triglycerides TSH Free T4 Free T3 pg/mL Blood Type 06/27/16 19:20 Troponin I 0.023 Impressions: Head CT 06/27/16 14:40 IMPRESSION: MILD CHRONIC CHANGES OF ATROPHY AND MICROVASCULAR ISCHEMIA. NO ACUTE PROCESS. Abdomen/Pelvis CT 06/27/16 15:53 IMPRESSION: 9 cm left inguinal hernia which contains a segment of sigmoid colon. There is mild stranding in the retroperitoneal fat, no definite evidence of incarceration. There is moderate impaction of stool in the rectosigmoid colon. The the remainder of the colon proximal to the hernia sac is largely fluid filled. No dilated small bowel. Fluid-filled esophagus, correlate for history of achalasia. Chest X-Ray 06/29/16 06:00 IMPRESSION: STABLE APPEARANCE OF THE CHEST. SUPPORT DEVICES UNCHANGED. Assessment & Plan - Diagnosis (1) SIRS due to infectious process with organ dysfunction Is this a current diagnosis for this admission?: YesPlan: Continue current medication management. Maintain on Dopamine, Neosyn and Levophed pressor support medications to maintain mean arterial pressure is less than 60mmHg. We will continue IV Metronidazole, Cefepime, Levofloxacin and Vancomycin coverage pending culture findings. Consider systemic anti-fungal coverage if culture remain negative for bacterial growth and no turn around in clinical status. I discussed case with his brother at bedside and overall prognosis remain very poor. Brother will get back to me regarding discussed DNR status after further deliberation with his siblings who are reported co-POA. (2) Hyponatremia Is this a current diagnosis for this admission?: Yes (3) Weakness generalized Is this a current diagnosis for this admission?: YesPlan: See attending physician orders for details. Obtain TSH, FT3, FT4 levels. (4) Schizophrenia Is this a current diagnosis for this admission?: Yes (5) HLD (hyperlipidemia) Qualifiers: Hyperlipidemia type: pure hypercholesterolemia Qualified Code(s): E78.00 - Pure hypercholesterolemia, unspecified; E78.0 - Pure hypercholesterolemia Is this a current diagnosis for this admission?: Yes (6) Chronic obstructive pulmonary disease Qualifiers: COPD type: unspecified COPD Qualified Code(s): J44.9 - Chronic obstructive pulmonary disease, unspecified Is this a current diagnosis for this admission?: Yes (7) Chronic systolic heart failure Is this a current diagnosis for this admission?: YesPlan: Continue current medication management. Obtain complete TTE for evaluation of cardiac function status. (8) Diabetes mellitus type II, controlled Qualifiers: Diabetes mellitus complication status: with unspecified complications Diabetes mellitus penitentiary insulin use: without intermediate teacher use Qualified Code(s): E11.8 - Type 2 diabetes mellitus with unspecified complications; Z79.4 - MCFP (current) use of insulin Is this a current diagnosis for this admission?: Yes (9) Abdominal pain Qualifiers: Abdominal location: lower abdomen, unspecified Qualified Code(s): R10.30 - Lower abdominal pain, unspecified Is this a current diagnosis for this admission?: YesPlan: We will continue conservative medical management due to patient high risk status and poor candidate for surgical intervention at this time. His leukocytosis has resolved comparatively but there is reported increase bandemia. We will consider acute abdominal series to monitor any significant intra-abdominal process change. - Time Critical Time spent with patient: 35 or more minutes - more than 50 % of the time was spent in care coordination and planning, counseling with patient's brother. Medications reviewed and adjusted accordingly: Yes Anticipated discharge: Other Within: Other - Inpatient Certification Based on my medical assessment, after consideration of the patient's comorbidities, presenting symptoms, or acuity I expect that the services needed warrant INPATIENT care.: Yes I certify that my determination is in accordance with my understanding of Medicare's requirements for reasonable and necessary INPATIENT services [42 CFR 412.3e].: Yes Medical Necessity: Need Close Monitoring Due to Risk of Patient Decompensation, Need For IV Fluids, Need For Continuous Telemetry Monitoring, Need for IV Antibiotics, Risk of Complication if Not Cared For in Hospital Post Hospital Care: D/C Neurology Tech Documentation - Plan Summary Plan Summary: See attending physician orders.
--- NOTE | 2016-06-29 17:14 | XCELERA REPORT ---
[address] [address] Transthoracic Echocardiogram Report Name: VIRY ROD Age: 66 yrs Gender: Male : 1950 Patient Status: Inpatient Patient Location: ICU\S\610\S\A Study Date: 06/29/2016 08:59 AM Height: 73 in Weight: 238 lb BSA: 2.3 m2 Procedure: A two-dimensional transthoracic echocardiogram with color flow and Doppler was performed. Study Quality: Technically suboptimal. The study was technically limited with all images being suboptimal in quality. Reason For Study: Persistent Hypotension History: HYPOTENSION. Ordering Physician: MARYANN ASHLEY Performed By: Irene Gamboa Interpretation Summary The left ventricle is grossly normal size. There is mild concentric left ventricular hypertrophy. LV EF is > than 65% Left ventricular systolic function is normal. Doppler measurements suggest impaired left ventricular relaxation, which is associated with grade I/IV or mild diastolic dysfunction Septal motion is consistent with post-operative state Otherwise wall motion is globally normal. There is no thrombus. The right ventricle is moderate to severely dilated. There is mild right ventricular hypertrophy. The right ventricular systolic function is normal. Not well seen , but atleast mild to moderatel dilated. There is no mitral valve stenosis. There is no mitral regurgitation noted. There is no aortic valve stenosis There is no LVOT obstruction. No aortic regurgitation is present. There is no tricuspid stenosis. Probaly trace TR.RVSP is 45 mm of Hg , with RA mean of 20.Probably unerestimation of TR and RVSP. There is no pericardial effusion. MMode/2D Measurements \T\ Calculations RVDd: 4.7 cm LVIDd: 5.4 cm FS: 42.5 % Ao root diam: 3.7 cm IVSd: 1.3 cm LVIDs: 3.1 cm EDV(Teich): 141.7 ml LVPWd: 1.3 cm ESV(Teich): 38.3 ml Ao root area: 10.5 cm2 EF(Teich): 73.0 % LA dimension: 5.2 cm Doppler Measurements \T\ Calculations MV E max harshil: MV P1/2t max harshil: Ao V2 max: LV V1 max P.1 cm/sec 57.5 cm/sec 117.6 cm/sec 3.3 mmHg MV A max harshil: MV P1/2t: 46.7 msec Ao max PG: LV V1 max: 79.8 cm/sec 5.5 mmHg 91.0 cm/sec MV E/A: 0.71 MVA(P1/2t): 4.7 cm2 MV dec slope: 360.2 cm/sec2 MV dec time: 0.16 sec PA V2 max: TR max harshil: 78.5 cm/sec 250.2 cm/sec PA max PG: TR max P.0 mmHg 2.5 mmHg Left Ventricle The left ventricle is grossly normal size. There is mild concentric left ventricular hypertrophy. LV EF is > than 65%. Left ventricular systolic function is normal. Doppler measurements suggest impaired left ventricular relaxation, which is associated with grade I/IV or mild diastolic dysfunction. Septal motion is consistent with post-operative state. Otherwise wall motion is globally normal. There is no thrombus. Right Ventricle The right ventricle is moderate to severely dilated. There is mild right ventricular hypertrophy. The right ventricular systolic function is normal. Atria Not well seen , but atleast mild to moderatel dilated. Mitral Valve There is mild mitral annular calcification. There is no evidence of mitral valve prolapse. There is no mitral valve stenosis. There is no mitral regurgitation noted. Aortic Valve There is no aortic valve stenosis. There is no LVOT obstruction. No aortic regurgitation is present. Tricuspid Valve There is no tricuspid stenosis. Probaly trace TR.RVSP is 45 mm of Hg , with RA mean of 20.Probably unerestimation of TR and RVSP. There is mild pulmonary hypertension by echo. Pulmonic Valve The pulmonic valve is not well visualized. Great Vessels The aortic root is normal size. Effusions There is no pericardial effusion. : MARYANN ASHLEY > Jenny Beatty
[2016-06-29] MEDS ORDERED: DEXTROSE 5%-WATER 250 ML with VASOPRESSIN 100 UNIT IV PRN ×2 (17:34)
[2016-06-29] MEDS ORDERED: VASOPRESSIN INJ 20 UNIT/1 ML VIAL ONE (17:42)
[2016-06-29] MEDS: NORMAL SALINE 1000 ML 1,000 ML IV PRN ×2 (18:10→18:12)
[2016-06-30] MEDS: CEFEPIME 1 GM/D5W RTU 50 ML IV SCH ×2 (00:03→09:02)
[2016-06-30] MEDS: METRONIDAZOLE 500 MG/NS RTU 100 ML IV SCH ×3 (00:04→13:01)
[2016-06-30] MEDS: NYSTATIN TOPICAL POWDER 15 GM TP SCH ×3 (00:05→13:03)
[2016-06-30] MEDS: PROPOFOL 100 ML IV PRN ×7 (00:28→17:01)
[2016-06-30] MEDS: DEXTROSE 5%-WATER 250 ML with PHENYLEPHRINE HCL 40 MG IV PRN ×8 (01:39→14:38)
[2016-06-30] MEDS: VANCOMYCIN HCL 1,000 MG in DEXTROSE 5%-WATER 250 ML IV SCH ×2 (02:58→14:22)
[2016-06-30] MEDS: DOPAMINE HCL/DEXTROSE 5%-WATER 250 ML IV PRN ×2 (05:48→13:02)
[2016-06-30] MEDS: PANTOPRAZOLE SODIUM 40 MG VIAL IV SCH (05:49)
[2016-06-30 06:21] LABS: BLOOD UREA NITROGEN 44 mg/dL (7-20); CHLORIDE 96 mmol/L (98-107); GLUCOSE 142 mg/dL (75-110); POTASSIUM 5.1 mmol/L (3.6-5.0)
[2016-06-30 06:21] LABS: ARTERIAL BLOOD BASE EXCESS -12.8 mmol/L; ARTERIAL BLOOD O2 SATURATION 93.7 % (94-98)
[2016-06-30 06:26] LABS: HEMATOCRIT 35.1 % (37.9-51.0); HEMOGLOBIN 12.7 g/dL (13.5-17.0); MEAN CORPUSCULAR HEMOGLOBIN 33.8 pg (27.0-33.4); MEAN CORPUSCULAR HGB CONC 36.1 g/dL (32.0-36.0); MEAN CORPUSCULAR VOLUME 94 fl (80-97); RED BLOOD COUNT 3.75 10^6/uL (4.35-5.55); RED CELL DISTRIBUTION WIDTH 14.1 % (11.5-14.0); WHITE BLOOD COUNT 8.4 10^3/uL (4.0-10.5)
[2016-06-30 06:28] LABS: ANION GAP 12 (5-19); CREATININE RESULT 1.25 mg/dL (0.52-1.25)
[2016-06-30 06:32] LABS: CALCIUM 6.9 mg/dL (8.4-10.2); CARBON DIOXIDE 9 mmol/L (22-30); SODIUM 117.3 mmol/L (137-145)
[2016-06-30 06:57] LABS: BAND NEUTROPHILS % (MANUAL) 6 % (3-5); BASOPHILS % (MANUAL) 1 % (0-2); EOSINOPHILS % (MANUAL) 1 % (0-6); LYMPHOCYTES % (MANUAL) 3 % (13-45); TOTAL CELLS COUNTED 100
[2016-06-30 07:03] LABS: TOXIC GRANULATION 1+; TOXIC VACUOLATION PRESENT
[2016-06-30 07:04] LABS: ANISOCYTOSIS SLIGHT; BURR CELLS SLIGHT; POIKILOCYTOSIS SLIGHT
[2016-06-30] MEDS ORDERED: INSULIN REG, HUMAN 100 UNIT/ML 3 ML VIAL (PYX) ONE (08:36)
[2016-06-30] MEDS ORDERED: SODIUM POLYSTYRENE SULFONATE 15 GM/60 ML ONE (08:36)
[2016-06-30] MEDS ORDERED: CALCIUM GLUCONATE 1000 MG/10 ML INJ IV ONE ×2 (08:36→09:00)
[2016-06-30] MEDS ORDERED: DEXTROSE 50%-WATER 25 GM/50 ML DISP.SYRIN IV ONE ×2 (08:37→09:00)
[2016-06-30] MEDS: ENOXAPARIN SODIUM INJ 40 MG/0.4 ML DISP.SYRIN SUBCUT SCH (08:45)
[2016-06-30] MEDS: NORMAL SALINE 1000 ML 1,000 ML IV PRN (08:47)
[2016-06-30] MEDS ORDERED: INSULIN REG, HUMAN 100 UNIT/ML 3 ML VIAL (PYX) IV ONE (09:00)
[2016-06-30] MEDS ORDERED: SODIUM POLYSTYRENE SULFONATE 15 GM/60 ML PR ONE (09:00)
[2016-06-30] MEDS: LEVOFLOXACIN 750 MG/D5W RTU 150 ML IV SCH (10:22)
--- NOTE | 2016-06-30 10:58 | EKG REPORT ---
SEVERITY:- ABNORMAL ECG - SINUS RHYTHM RIGHT BUNDLE BRANCH BLOCK OLD INFERIOR CO OLD ANTERIOR CO : Confirmed by: Noe Rodrigez MD 30-Jun-2016 10:57:24
--- NOTE | 2016-06-30 14:16 | PDOC TRANSFER SUMMARY ---
General Admission Date/PCP: 06/27/16 19:18 MARYANN ASHLEY Admission Date: 06/27/16 Transfer Date: 06/30/16 Accepting Facility: [facility] - Transfer Diagnosis (1) Septic shock Current Visit: Yes (2) Strangulated inguinal hernia Current Visit: Yes (3) Type 2 diabetes mellitus Current Visit: Yes - Transfer Medications Home Medications: Allopurinol [Zyloprim 100 mg Tablet] 100 mg PO DAILY 06/28/16 Clonidine HCl [Catapres 0.2 mg Tablet] 0.2 mg PO Q12 06/28/16 Duloxetine HCl [Cymbalta] 60 mg PO BID 06/28/16 Ezetimibe/Simvastatin [Vytorin 10-20 mg Tablet] 1 tab PO DAILY 06/28/16 Furosemide [Lasix 40 mg Tablet] 40 mg PO QAM 06/28/16 Lisinopril [Prinivil 40 mg Tablet] 06/28/16 Lisinopril [Prinivil] 20 mg PO DAILY 06/28/16 Magnesium Oxide 400 mg PO DAILY 06/28/16 Metformin HCl [Glucophage] 1,000 mg PO BID 06/28/16 Paliperidone Palmitate [Invega Trinza] 156 mg IM [id number] 06/28/16 Trazodone HCl 25 mg PO QHS 06/28/16 Umeclidinium Brm/Vilanterol Tr [Anoro Ellipta 62.5-25 Mcg INH] 1 inh PO DAILY Transfer Medications: Current Medications Acetaminophen (Tylenol 650 Mg Supp) 650 mg DC Q6HP PRN PRN Reason: FEVER Stop: 07/28/16 23:09 Albuterol/Ipratropium (Duoneb 3 Ml Ampul) 3 ml NEB RTQ6HP PRN Stop: 07/28/16 10:08 Enoxaparin Sodium (Lovenox Inj 40 Mg/0.4 Ml Disp.Syrin) [facility] [place] Stop: 07/28/16 07:59 Last Admin: 06/30/16 08:45 Dose: 40 mg Heparin Sodium (Porcine) (Heparin Flush 10 Unit/Ml 5 Ml Disp.Syrg) 30 unit IV .AFTER EACH USE PRN PRN Reason: AFTER EACH INTERMITTENT USE Stop: 07/28/16 11:25 Heparin Sodium (Porcine) (Heparin Flush 10 Unit/Ml 5 Ml Disp.Syrg) 30 unit IV Q8 [facility] Stop: 07/28/16 13:59 Last Admin: 06/30/16 13:03 Dose: Not Given Hydrocortisone Sodium Succinate (Solu-Cortef Inj/Pf 100 Mg/ 2 Ml Sdv) 100 mg IV NOW ONE Stop: 06/30/16 13:03 Dopamine HCl/Dextrose (Dopamine Rtu 800 Mg-D5w 250 Ml (Adult) Premix) 250 mls @ 0 mls/hr IV CONTINUOUS PRN; Titrate PRN Reason: THIS MED IS NOT "PRN" Stop: 07/27/16 19:20 Last Admin: 06/30/16 13:02 Dose: 250 ml Cefepime HCl (Maxipime Rtu 1 Gm/D5w 50 Ml Premix Bag) 50 mls @ 100 mls/hr IV Q12 [facility] Stop: 07/05/16 09:59 Last Admin: 06/30/16 09:02 Dose: 50 ml Levofloxacin/Dextrose (Levaquin Rtu 750 Mg/D5w 150 Ml Premix) 150 mls @ 100 mls /hr IV DAILY [facility] Stop: 07/05/16 09:59 Last Admin: 06/30/16 10:22 Dose: 150 ml Sodium Chloride (Nacl 0.9% 1000 Ml Iv Soln) 1,000 mls @ 100 mls/hr IV CONTINUOUS PRN PRN Reason: THIS MED IS NOT "PRN" Stop: 07/28/16 06:47 Last Admin: 06/30/16 08:47 Dose: 1,000 ml Vancomycin HCl 1,000 mg/ (Dextrose) 250 mls @ 166.667 mls/hr IV Q12@0300,1500 [facility] Stop: 07/05/16 14:59 Last Admin: 06/30/16 02:58 Dose: 1,000 mg Metronidazole (Flagyl Rtu 500 Mg/Ns 100ml Premix) 100 mls @ 100 mls/hr IV Q6 [facility] Stop: 07/05/16 11:59 Last Admin: 06/30/16 13:01 Dose: 100 ml Propofol (Diprivan Rtu 1000 Mg/100 Ml Inf.Bottle) 100 mls @ 0 mls/hr IV CONTINUOUS PRN; Protocol; Titrate PRN Reason: THIS MED IS NOT "PRN" Stop: 07/28/16 11:45 Last Admin: 06/30/16 12:23 Dose: 100 ml Hard Fat/Phenylephrine 40 mg/ (Dextrose) 250 mls @ 0 mls/hr IV CONTINUOUS PRN; Protocol; Titrate PRN Reason: THIS MED IS NOT "PRN" Stop: 07/28/16 14:03 Last Admin: 06/30/16 08:47 Dose: 40 mg Norepinephrine Bitartrate 4 mg (/ Dextrose) 250 mls @ 0 mls/hr IV CONTINUOUS PRN; Protocol; Titrate PRN Reason: THIS MED IS NOT "PRN" Stop: 07/29/16 09:24 Last Admin: 06/29/16 18:43 Dose: 4 mg Vasopressin 100 unit/ Dextrose 250 mls @ 0 mls/hr IV CONTINUOUS PRN; Protocol; Titrate PRN Reason: THIS MED IS NOT "PRN" Stop: 07/29/16 17:33 Morphine Sulfate (Morphine 10 Mg/Ml Inj) 2 mg IV Q4HP PRN Stop: 07/06/16 09:14 Nystatin (Mycostatin Topical Powder 15 Gm) 1 applic TP Q8 [facility] Stop: 07/05/16 21:59 Last Admin: 06/30/16 13:03 Dose: 1 applic Pantoprazole Sodium (Protonix Iv Inj 40 Mg Vial) 40 mg IV Q12A [facility] Stop: 07/01/16 17:59 Last Admin: 06/30/16 05:49 Dose: 40 mg Pharmacy Profile Note (Medication Communication Order) 1 each [facility] .NOTICE NR Stop: 07/28/16 10:14 Sodium Chloride (Nacl 0.9% Inj/Pf 10 Ml Sdv) 10 ml IV .AFTER EACH USE PRN PRN Reason: AFTER EACH INTERMITTENT USE Stop: 07/28/16 11:25 - Allergies Allergies/Adverse Reactions: Penicillins Allergy (Verified 04/16/16 17:15) Sulfa (Sulfonamide Antibiotics) Allergy (Verified 04/16/16 17:15) Hospital Course Hospital Course: Patient 48-year-old male. He was admitted on 06/27/2016 when he presented to the emergency room with abdominal pain, nausea, vomiting emergency room he was found to have severe low blood pressure, the blood pressure recorded in the emergency room was 70/50 that was associated leukocytosis with left shift and lactic acidosis. CT scan of the abdomen and pelvis was done and it showed a large right inguinal hernia,clinically it looks strangulated. Patient's condition deteriorated very rapidly requiring mechanical ventilation and it is presently on multiple pressors including vasopressin, norepinephrine, phenylephrine. He is also on multiple antibiotic, no source was found for the sepsis, the only potential source is the strangulated inguinal hernia. Consultation was requested from surgery for evaluation of a possible laparotomy but the suggest declined to proceed and they recommended that patient be transferred to tertiary care. He is also being followed by pulmonary. I spoke to the patient's family about his condition and the consensus is that patient be transferred to tertiary care. I'll call [facility] and the salad counter attendant was kind enough to accept the patient in transfer. Physical Exam Vital Signs: Temp Pulse Resp BP Pulse Ox 98.6 F 75 28 H 113/82 100 06/30/16 11:52 06/30/16 11:52 06/30/16 13:46 06/30/16 13:46 06/30/16 13:46 Intake & Output 06/29/16 06/30/16 07/01/16 06:59 06:59 06:59 Intake Total 48942 8215 Output Total 5780 2895 235 Balance 5959 5320 -235 Weight 108 kg 115.5 kg Eye exam: PRESENT: PERRLA Respiratory exam: PRESENT: clear to auscultation debi Cardiovascular exam: PRESENT: +S1, +S2 GI/Abdominal exam: PRESENT: soft Neurological exam: PRESENT: other - sedated Results Laboratory Results: 06/30/16 06:00 06/30/16 06:00 06/30/16 06/30/16 06/30/16 06:00 06:00 06:07 WBC 8.4 RBC 3.75 L Hgb 12.7 L Hct 35.1 L MCV 94 MCH 33.8 H MCHC 36.1 H RDW 14.1 H Plt Count 40 L Seg Neutrophils % Not Reportable Lymphocytes % Not Reportable Monocytes % Not Reportable Eosinophils % Not Reportable Basophils % Not Reportable Absolute Neutrophils Not Reportable Absolute Lymphocytes Not Reportable Absolute Monocytes Not Reportable Absolute Eosinophils Not Reportable Absolute Basophils Not Reportable Carbonic Acid 0.65 L HCO3/H2CO3 Ratio 17:1 ABG pH 7.33 L ABG pCO2 21.7 L ABG pO2 71.1 L ABG HCO3 11.1 L ABG O2 Saturation 93.7 L ABG Base Excess -12.8 FiO2 55% Sodium 117.3 L* Potassium 5.1 H Chloride 96 L Carbon Dioxide 9 L* Anion Gap 12 BUN 44 H Creatinine 1.25 Est GFR ( Amer) > 60 Est GFR (Non-Af Amer) 57 L Glucose 142 H Calcium 6.9 L* 06/27/16 19:20 Troponin I 0.023 Impressions: Head CT 06/27/16 14:40 IMPRESSION: MILD CHRONIC CHANGES OF ATROPHY AND MICROVASCULAR ISCHEMIA. NO ACUTE PROCESS. Abdomen/Pelvis CT 06/27/16 15:53 IMPRESSION: 9 cm left inguinal hernia which contains a segment of sigmoid colon. There is mild stranding in the retroperitoneal fat, no definite evidence of incarceration. There is moderate impaction of stool in the rectosigmoid colon. The the remainder of the colon proximal to the hernia sac is largely fluid filled. No dilated small bowel. Fluid-filled esophagus, correlate for history of achalasia. Chest X-Ray 06/30/16 06:00 IMPRESSION: 1. Support tubes and lines as above 2. Overall no significant change in the appearance of the chest x-ray compared to the prior study.
[2016-06-30] MEDS ORDERED: HYDROCORTISONE SOD SUCCINATE INJ/PF 100 MG/2 ML SDV IV ONE (14:30)
[2016-06-30 15:29] LABS: CREATININE RESULT 1.37 mg/dL (0.52-1.25)
[2016-06-30 16:23] VITALS: BP 125/84
[2016-06-30 16:49] LABS: ARTERIAL BLOOD BASE EXCESS -13.1 mmol/L; ARTERIAL BLOOD O2 SATURATION 93.7 % (94-98)
== END 2016-06-30 17:09 | disposition short-term general hospital (02) | DRG 871 ==
LOC: ER 13:51 → UNDOADMIN 19:11 → EH 19:11 → ICU 06-28 03:35
PROVIDERS: ADMIT Internal Medicine Geriatric Medicine; ATTEND Internal Medicine Geriatric Medicine
PROC: 02HV33Z Insertion of Infusion Device into Superior Vena Cava, Percutaneous Approach (ICD-10-PCS; principal; 2016-06-28)
PROC: B548ZZA Ultrasonography of Superior Vena Cava, Guidance (ICD-10-PCS; 2016-06-28)
PROC: 3E043XZ Introduction of Vasopressor into Central Vein, Percutaneous Approach (ICD-10-PCS; 2016-06-28)
PROC: 0BH17EZ Insertion of Endotracheal Airway into Trachea, Via Natural or Artificial Opening (ICD-10-PCS; 2016-06-28)
PROC: 5A1945Z Respiratory Ventilation, 24-96 Consecutive Hours (ICD-10-PCS; 2016-06-28)
DX: A41.9 Sepsis, unspecified organism (principal); G93.40 Encephalopathy, unspecified; R65.21 Severe sepsis with septic shock; K40.30 Unilateral inguinal hernia, with obstruction, without gangrene, not specified as recurrent; N17.9 Acute kidney failure, unspecified; B37.89 Other sites of candidiasis; I50.22 Chronic systolic (congestive) heart failure; E87.1 Hypo-osmolality and hyponatremia; E87.2 Acidosis; F20.9 Schizophrenia, unspecified; E11.9 Type 2 diabetes mellitus without complications; E78.00 Pure hypercholesterolemia, unspecified; I10 Essential (primary) hypertension; I25.10 Atherosclerotic heart disease of native coronary artery without angina pectoris; J44.9 Chronic obstructive pulmonary disease, unspecified; E87.6 Hypokalemia; K21.9 Gastro-esophageal reflux disease without esophagitis; F17.210 Nicotine dependence, cigarettes, uncomplicated; Z60.2 Problems related to living alone; K22.0 Achalasia of cardia; I25.2 Old myocardial infarction; Z88.0 Allergy status to penicillin; Z88.2 Allergy status to sulfonamides
CPT/HCPCS: 31500; 36415; 70450; 71010; 74177; 76937; 80048; 80053; 81001; 82271; 82272; 82550; 82553; 82565; 82803; 83605; 83690; 83735; 84439; 84443; 84478; 84481; 84484; 85025; 85027; 85610; 85730; 86900; 86901; 87040; 87070; 87077; 87086; 87205; 93005; 93010; 93306; 94002; 94003; C1751; J0610; J0692; J1265; J1650; J1720; J1956; J2370; J2704; J3370; J3430; J3480; J3490; J7030; J7060; J7120; S0164